=== PATIENT | male | born 1970 | race African-American/Black ===

== ENCOUNTER 2016-04-10 13:59 | Emergency (ER) | payer OTHER ==
[2016-04-10] MEDS ORDERED: NORMAL SALINE 1000 ML 1,000 ML IV ONE (14:30)
--- NOTE | 2016-04-10 14:36 | ER Document Report ---
ED General - General Chief Complaint: Seizure Stated Complaint: POSSIBLE SEIZURES Mode of Arrival: Medic Information source: Parent Cannot obtain history due to: Altered mental status Notes: This is a 46-year-old -[place] male with a history of seizure disorder secondary to traumatic brain injury in 1994. He is brought to the ER today for evaluation of seizures. He has been noted to have 8-10 seizures since this morning. The episodes are described as his extremities "locking up" and possible "posturing" from EMS. It is unclear if he had any tonic clonic movements. It does not appear that he has had loss of bowel or bladder. He was given IM Versed and 5 mg of Valium IV per EMS in route and has not had seizures since this medication. His mother accompanies him and provides the history as patient is postictal and drowsy from the Valium and Versed. Patient' s mother states that he is always very compliant with his medications. His antiepileptics include Keppra and Lamictal. He is followed by a neurologist in [place], who he last saw 2 months ago. His last seizure according to his mother was back in November 2015, which was about 4 months ago. She states that patient has had no recent fevers or illnesses. He has had no vomiting or diarrhea. He was acting normally until today. TRAVEL OUTSIDE OF THE [place] IN LAST 30 DAYS: No - Related Data Allergies/Adverse Reactions: phenytoin sodium [From Dilantin] Allergy (Verified 04/14/14 20:51) phenytoin sodium extended [From Dilantin] Allergy (Verified 04/14/14 20:51) Past Medical History - General Information source: Parent Cannot obtain history due to: Altered mental status - Social History Smoking Status: Unknown if Ever Smoked Family History: Reviewed & Not Pertinent - Past Medical History Cardiac Medical History: Reports: Hx Hypercholesterolemia, Hx Hypertension Neurological Medical History: Reports: Hx Migraine, Hx Seizures Endocrine Medical History: Denies: Hx Diabetes Mellitus Type 1, Hx Diabetes Mellitus Type 2 Musculoskeltal Medical History: Reports Hx Arthritis Psychiatric Medical History: Reports: Hx Anxiety, Hx Depression Traumatic Medical History: Reports: Hx Traumatic Brain Injury Past Surgical History: Reports: Hx Neurologic Surgery - Open skull fracture, craniotomy repair, Hx Orthopedic Surgery - Hand surgery - Immunizations Hx Diphtheria, Pertussis, Tetanus Vaccination: Yes Review of Systems - Review of Systems -: Yes ROS unobtainable due to patient's medical condition Physical Exam - Vital signs Vitals: Resp BP 25 H 125/77 04/10/16 14:06 04/10/16 14:06 - Notes Notes: PHYSICAL EXAMINATION: GENERAL: well-nourished -[place] male who appears sleepy. Will respond to tactile stimulation and answers questions appropriately although tired. HEAD: Atraumatic, normocephalic. EYES: Pupils equal round and reactive to light, extraocular movements intact, sclera anicteric, conjunctiva are normal. ENT: nares patent, oropharynx clear without exudates. Moist mucous membranes. NECK: Normal range of motion, supple without lymphadenopathy LUNGS: Breath sounds clear to auscultation bilaterally and equal. No wheezes rales or rhonchi. HEART: Regular rate and rhythm without murmurs ABDOMEN: Soft, nontender, normoactive bowel sounds. No guarding, no rebound. No masses appreciated. EXTREMITIES: Normal range of motion, no pitting or edema. No cyanosis. NEUROLOGICAL: Cranial nerves grossly intact. No gross focal motor or sensory deficits appreciated PSYCH: Normal mood, normal affect. SKIN: Warm, Dry, normal turgor, no rashes or lesions noted. Course - Re-evaluation Re-evalutation: 04/10/16 16:38 Patient reevaluated. He is alert and conversant and back to his baseline mental status. Discussed results with him and his mother who is his caregiver. When a similar event occurred last November, he was instructed to increase his dose of Keppra. However he was running out because he did not have a new prescription for the new dose, so he has resumed the previous dose of 500 mg twice a day. We discussed increasing this to 1000 mg every morning and 500 mg by mouth daily at bedtime. He is instructed to call his neurologist tomorrow to change the prescription. Strict return precautions were discussed he and his mother were comfortable with plan. 04/11/16 00:08 - Vital Signs Vital signs: Temp Pulse Resp BP Pulse Ox 97.8 F 19 124/80 93 04/10/16 17:03 04/10/16 17:01 04/10/16 17:01 04/10/16 17:01 - Laboratory Result Diagrams: 04/10/16 14:19 04/10/16 14:19 Laboratory results interpreted by me: 04/10/16 04/10/16 04/10/16 14:19 14:19 15:03 RDW 15.4 H Glucose 120 H POC Glucose 117 H AST 16 L Urine Urobilinogen 04/10/16 16:45 RDW Glucose POC Glucose AST Urine Urobilinogen 2.0 H Discharge - Discharge Clinical Impression: Seizure Condition: Stable Disposition: HOME, SELF-CARE Additional Instructions: Seizure, Known Epileptic You have had a seizure. Seizures may "break through" in an epileptic due to stress of infection or injury, a change in blood chemistry, or drug and alcohol use. Another common cause is failure to take medication as prescribed. Your doctor has evaluated your situation for the likely cause of this seizure. It is important that you follow his advice concerning any medication changes and follow-up care. Further testing of anti-seizure medication levels in your blood may be necessary. If you have a light truck driver's license, it's important that you DO NOT DRIVE until given permission by your physician. This seizure must be reported to the light truck driver 's license bureau. Call the doctor or return if seizures recur, or if new or unusual symptoms arise -- such as severe headache, confusion, excessive sleepiness, local weakness or numbness, neck stiffness, or fever. Increase your Keppra dose to 1000 mg by mouth every morning and 500 mg by mouth at nighttime. Call your neurologist tomorrow to discuss this new dose and need for prescription change. Also discussed follow-up appointment. Return to the ER for any worsening symptoms or concerns. Prescriptions: Levetiracetam [Keppra 500 mg Tablet] 500 mg PO QAM #20 tablet
[2016-04-10 14:40] LABS: ABSOLUTE BASOPHILS # (AUTO) 0.1 10^3/uL (0.0-0.2); ABSOLUTE EOSINOPHILS # (AUTO) 0.3 10^3/uL (0.0-0.6); ABSOLUTE LYMPHOCYTES (AUTO) 2.5 10^3/uL (0.5-4.7); ABSOLUTE MONOCYTES (AUTO) 0.8 10^3/uL (0.1-1.4); ABSOLUTE NEUT (AUTO) 4.1 10^3/uL (1.7-8.2); BASOPHILS % (AUTO) 0.8 % (0-2); EOSINOPHILS % (AUTO) 3.5 % (0-6); HEMATOCRIT 47.8 % (37.9-51.0); HEMOGLOBIN 15.9 g/dL (13.5-17.0); HGB HCT DIFFERENCE -0.1; LYMPHOCYTES % (AUTO) 32.8 % (13-45); MEAN CORPUSCULAR HEMOGLOBIN 30.2 pg (27.0-33.4); MEAN CORPUSCULAR HGB CONC 33.4 g/dL (32.0-36.0); MEAN CORPUSCULAR VOLUME 90 fl (80-97); MONOCYTES % (AUTO) 9.9 % (3-13); RED BLOOD COUNT 5.28 10^6/uL (4.35-5.55); RED CELL DISTRIBUTION WIDTH 15.4 % (11.5-14.0); WHITE BLOOD COUNT 7.8 10^3/uL (4.0-10.5)
[2016-04-10 14:49] LABS: ALANINE AMINOTRANSFERASE 35 U/L (21-72); ALBUMIN 4.5 g/dL (3.5-5.0); ALKALINE PHOSPHATASE 98 U/L (38-126); ANION GAP 10 (5-19); ASPARTATE AMINO TRANSFERASE 16 U/L (17-59); BILIRUBIN,TOTAL 0.5 mg/dL (0.2-1.3); BLOOD UREA NITROGEN 13 mg/dL (7-20); CARBON DIOXIDE 28 mmol/L (22-30); CHLORIDE 106 mmol/L (98-107); GLUCOSE 120 mg/dL (75-110); POTASSIUM 4.6 mmol/L (3.6-5.0); SODIUM 143.8 mmol/L (137-145)
[2016-04-10 14:50] LABS: ALCOHOL < 10 mg/dL (NONE DETECTED)
[2016-04-10 17:03] VITALS: BP 124/80
[2016-04-10 17:06] LABS: APPEARANCE,URINE CLEAR; BILIRUBIN,URINE NEGATIVE (NEGATIVE); GLUCOSE, URINE NEGATIVE (NEGATIVE); KETONES,URINE NEGATIVE (NEGATIVE); LEUKOCYTE ESTERASE,URINE NEGATIVE (NEGATIVE); NITRITE,URINE NEGATIVE (NEGATIVE); PROTEIN,URINE NEGATIVE (NEGATIVE); URINE SPECIFIC GRAVITY 1.025
[2016-04-10 17:26] LABS: URINE BARBITURATES SCREEN NEGATIVE; URINE METHADONE SCREEN NEGATIVE; URINE OPIATES LOW NEGATIVE; URINE PHENCYCLIDINE SCREEN NEGATIVE
[2016-04-12 14:08] LABS: LAMOTRIGINE (LAMICTAL) 17.2 ug/mL (2.0-20.0)
[2016-04-13 14:23] LABS: LEVETIRACETAM (KEPPRA) 10.3 ug/mL (10.0-40.0)
== END 2016-04-10 17:18 | disposition home or self-care (01) ==
LOC: ER 13:59
DX: G40.909 Epilepsy, unspecified, not intractable, without status epilepticus (principal); S06.9X0S Unspecified intracranial injury without loss of consciousness, sequela; X58.XXXS Exposure to other specified factors, sequela; Z79.899 Other long term (current) drug therapy; I10 Essential (primary) hypertension; Z88.8 Allergy status to other drugs, medicaments and biological substances
CPT/HCPCS: 99284; 36415; 80177; 82962; 80307 ×2; 83735; 85025; 80053; 80175; 81001; 71010; 70450; J7030

== ENCOUNTER 2017-02-25 13:04 | Emergency (ER) | payer OTHER, MEDICARE, MEDICAID ==
--- NOTE | 2017-02-25 13:25 | ER Document Report ---
ED General - General Chief Complaint: Seizure Stated Complaint: POSSIBLE SEIZURE Time Seen by Provider: 02/25/17 13:14 Notes: Patient is a 47-year-old female who presents emergency department with a chief complaint of seizure. Patient has well-known history of seizures and is on Lamictal and Keppra. Mom states that he was at a basketball game watching when he had a witnessed seizure. His parents were called and EMS was called. Prior to arrival the patient had 2 witnessed seizures with EMS and he received 2.5 mg of intranasal Versed. Patient has not had a seizure since. mom states that he is compliant with his medications. States she puts them together for him to make sure that he takes them. She states that he has not skipped any doses. . Mom also stating that his abdomen has been distended over the past couple of days but she denies any nausea, vomiting, diarrhea or constipation. She states she is not aware of his bowel habits though Patient's primary care and neurology are both through the [facility]. He does go to [facility] for neurology. TRAVEL OUTSIDE OF THE [place] IN LAST 30 DAYS: No - Related Data Allergies/Adverse Reactions: phenytoin sodium [From Dilantin] Allergy (Verified 02/25/17 13:31) phenytoin sodium extended [From Dilantin] Allergy (Verified 02/25/17 13:31) Past Medical History - Social History Smoking Status: Never Smoker Family History: Reviewed & Not Pertinent - Past Medical History Cardiac Medical History: Reports: Hx Hypercholesterolemia, Hx Hypertension Neurological Medical History: Reports: Hx Migraine, Hx Seizures Endocrine Medical History: Denies: Hx Diabetes Mellitus Type 1, Hx Diabetes Mellitus Type 2 Musculoskeltal Medical History: Reports Hx Arthritis Psychiatric Medical History: Reports: Hx Anxiety, Hx Depression Traumatic Medical History: Reports: Hx Traumatic Brain Injury Past Surgical History: Reports: Hx Neurologic Surgery - Open skull fracture, craniotomy repair, Hx Orthopedic Surgery - Hand surgery - Immunizations Hx Diphtheria, Pertussis, Tetanus Vaccination: Yes Review of Systems - Review of Systems Constitutional: No symptoms reported Cardiovascular: No symptoms reported Respiratory: No symptoms reported Gastrointestinal: See HPI Musculoskeletal: No symptoms reported Neurological/Psychological: See HPI -: Yes All other systems reviewed and negative Physical Exam - Vital signs Vitals: Resp Pulse Ox 21 H 93 02/25/17 13:14 02/25/17 13:14 - Notes Notes: PHYSICAL EXAM GENERAL: Sleeping but arousable to physical stimuli when I shake his arm HEAD: Normocephalic, atraumatic. EYES: Pupils equal, round, and reactive to light. Extraocular movements intact. ENT: Oral mucosa moist, tongue midline. NECK: Full range of motion. Supple. Trachea midline. LUNGS: Clear to auscultation bilaterally, no wheezes, rales, or rhonchi. No respiratory distress. HEART: Regular rate and rhythm. No murmurs, gallops, or rubs. ABDOMEN: Soft, distended, nontender. No guarding, rebound, or rigidity.. Bowel sounds present in all 4 quadrants. EXTREMITIES: Moves all 4 extremities spontaneously. No edema, radial and dorsalis pedis pulses 2/4 bilaterally. No cyanosis. NEUROLOGICAL: Alert and oriented x4. Normal speech. PSYCH: Normal affect, normal mood. SKIN: Warm, dry, normal turgor. No rashes or lesions noted. Course - Re-evaluation Re-evalutation: 02/25/17 15:45 patient is a 47-year-old male who is hemodynamically stable, no acute distress and afebrile. patient has been drowsy from the intranasal Versed but is becoming progressively more responsive. Still not at baseline. Presentation of well-appearing patient after having a seizure. Patient has a known history of seizures. No obvious trigger for today's episode. KUB that was completed cannot be ruled out for any underlying ascites. Given that patient has a normal liver function patient without history of liver disease, hepatitis. 02/25/17 17:45 The patient has returned to baseline without intervention. No focal neurologic deficits. No infectious symptoms, vital sign abnormalities, or evidence of trauma. No indication for laboratories or imaging based on reassuring evaluation and known history of seizures. Regarding the patient's CT scan the abdomen pelvis there is no acute findings or concerns for ascites or constipation. The patient will be discharged home with recommendations for close follow-up with primary care as well as their neurologist. Return precautions have been reviewed and patient has verbalized understanding. - Vital Signs Vital signs: Temp Pulse Resp BP Pulse Ox 98.1 F 20 128/76 H 97 02/25/17 18:00 02/25/17 18:00 02/25/17 18:00 02/25/17 18:00 - Laboratory Result Diagrams: 02/25/17 13:10 02/25/17 13:10 Laboratory results interpreted by me: 02/25/17 02/25/17 13:10 13:10 RDW 15.4 H Glucose 114 H AST 16 L - Diagnostic Test Radiology reviewed: Image reviewed, Reports reviewed Discharge - Discharge Clinical Impression: Seizure Condition: Good Disposition: HOME, SELF-CARE Additional Instructions: Seizure, Known Epileptic You have had a seizure. Seizures may "break through" in an epileptic due to stress of infection or injury, a change in blood chemistry, or drug and alcohol use. Another common cause is failure to take medication as prescribed. Your doctor has evaluated your situation for the likely cause of this seizure. It is important that you follow his advice concerning any medication changes and follow-up care. Further testing of anti-seizure medication levels in your blood may be necessary. If you have a transport truck driver's license, it's important that you DO NOT DRIVE until given permission by your physician. This seizure must be reported to the transport truck driver 's license bureau. Call the doctor or return if seizures recur, or if new or unusual symptoms arise -- such as severe headache, confusion, excessive sleepiness, local weakness or numbness, neck stiffness, or fever. Referrals: [facility] [Provider Group] - Follow up in 1 week
[2017-02-25 13:28] LABS: ABSOLUTE BASOPHILS # (AUTO) 0.1 10^3/uL (0.0-0.2); ABSOLUTE EOSINOPHILS # (AUTO) 0.3 10^3/uL (0.0-0.6); ABSOLUTE LYMPHOCYTES (AUTO) 2.4 10^3/uL (0.5-4.7); ABSOLUTE MONOCYTES (AUTO) 0.7 10^3/uL (0.1-1.4); ABSOLUTE NEUT (AUTO) 3.9 10^3/uL (1.7-8.2); BASOPHILS % (AUTO) 1.1 % (0-2); EOSINOPHILS % (AUTO) 4.3 % (0-6); HEMATOCRIT 46.9 % (37.9-51.0); HEMOGLOBIN 15.9 g/dL (13.5-17.0); LYMPHOCYTES % (AUTO) 32.4 % (13-45); MEAN CORPUSCULAR HEMOGLOBIN 30.5 pg (27.0-33.4); MEAN CORPUSCULAR HGB CONC 33.8 g/dL (32.0-36.0); MEAN CORPUSCULAR VOLUME 90 fl (80-97); PLATELET COUNT 210 10^3/uL (150-450); RED BLOOD COUNT 5.21 10^6/uL (4.35-5.55); RED CELL DISTRIBUTION WIDTH 15.4 % (11.5-14.0); SEGMENTED NEUTROPHILS % (AUTO) 52.2 % (42-78); TOTAL CELLS COUNTED % (AUTO) 100 %; WHITE BLOOD COUNT 7.5 10^3/uL (4.0-10.5)
[2017-02-25 13:50] LABS: ALANINE AMINOTRANSFERASE 30 U/L (21-72); ALBUMIN 4.3 g/dL (3.5-5.0); ALCOHOL < 10 mg/dL (NONE DETECTED); ALKALINE PHOSPHATASE 89 U/L (38-126); ANION GAP 8 (5-19); ASPARTATE AMINO TRANSFERASE 16 U/L (17-59); BILIRUBIN,DIRECT 0.2 mg/dL (0.0-0.4); BILIRUBIN,TOTAL 0.4 mg/dL (0.2-1.3); BLOOD UREA NITROGEN 9 mg/dL (7-20); CALCIUM 9.8 mg/dL (8.4-10.2); CARBON DIOXIDE 29 mmol/L (22-30); CHLORIDE 106 mmol/L (98-107); GLUCOSE 114 mg/dL (75-110); MAGNESIUM 1.9 mg/dL (1.6-2.3); POTASSIUM 4.3 mmol/L (3.6-5.0); SODIUM 143.1 mmol/L (137-145); TOTAL PROTEIN 6.7 g/dL (6.3-8.2)
[2017-02-25 14:59] LABS: APPEARANCE,URINE CLEAR; BILIRUBIN,URINE NEGATIVE (NEGATIVE); COLOR,URINE YELLOW; GLUCOSE, URINE NEGATIVE (NEGATIVE); KETONES,URINE NEGATIVE (NEGATIVE); LEUKOCYTE ESTERASE,URINE NEGATIVE (NEGATIVE); NITRITE,URINE NEGATIVE (NEGATIVE); PROTEIN,URINE NEGATIVE (NEGATIVE); URINE SPECIFIC GRAVITY 1.005; UROBILINOGEN,URINE NEGATIVE mg/dL (<2.0)
[2017-02-25 15:11] LABS: URINE AMPHETAMINES SCREEN NEGATIVE; URINE BARBITURATES SCREEN NEGATIVE; URINE BENZODIAZEPINES SCREEN UNCONFIRMED POSITIVE; URINE COCAINE SCREEN NEGATIVE; URINE MARIJUANA (THC) SCREEN NEGATIVE; URINE METHADONE SCREEN NEGATIVE; URINE PHENCYCLIDINE SCREEN NEGATIVE
--- NOTE | 2017-02-25 15:30 | RADIOLOGY REPORT (SQ) ---
EXAM DESCRIPTION: CT HEAD WITHOUT COMPLETED DATE/TIME: 02/25/2017 2:50 pm REASON FOR STUDY: seizure COMPARISON: 04/10/2016. TECHNIQUE: Axial images acquired through the brain without intravenous contrast. Images reviewed wi th bone, brain and subdural windows. Images stored on PACS. All CT scanners at this facility use dose modulation, iterative reconstruction, and/or weight based d osing when appropriate to reduce radiation dose to as low as reasonably achievable (ALARA). [facility]: Dose Right [facility]: CareDose [facility]: Dose Right [facility]: Teradose 4D [facility]: [employer] RADIATION DOSE: CT Rad equipment meets quality standard of care and radiation dose reduction techniq ues were employed. CTDIvol: 64.6 mGy. DLP: 1163 mGy-cm. mGy. LIMITATIONS: None. FINDINGS: VENTRICLES: Normal size and contour. CEREBRUM: Stable encephalomalacia in the right frontal lobe. No masses. No hemorrhage. No midline shift. No evidence for acute infarction. Normal barrera/white matter differentiation. No areas of low d ensity in the white matter. CEREBELLUM: No masses. No hemorrhage. No alteration of density. No evidence for acute infarction. EXTRAAXIAL SPACES: No fluid collections. No masses. ORBITS AND GLOBE: Surgical changes with hardware in the right orbit and maxillary sinus. No intra- o r extraconal masses. Normal contour of globe without masses. CALVARIUM: No acute fracture. Surgical changes and hardware in the right frontal bone PARANASAL SINUSES: No fluid or mucosal thickening. SOFT TISSUES: No mass or hematoma. OTHER: No other significant finding. IMPRESSION: SURGICAL CHANGES INVOLVING THE RIGHT FRONTAL LOBE WITH CHRONIC ENCEPHALOMALACIA WELL IN THE RIGHT ORBIT AND RIGHT MAXILLARY SINUS. NO ACUTE FINDINGS. EVIDENCE OF ACUTE STROKE: NO. COMMENT: Quality ID # [id number]: Final reports with documentation of one or more dose reduction techniques (e.g., Automated exposure control, adjustment of the mA and/or kV according to patient size, use of iterative reconstruction technique) TECHNICAL DOCUMENTATION: JOB ID: [id number] [employer] [facility]- All Rights Reserved
[2017-02-25] MEDS ORDERED: NORMAL SALINE 1000 ML 1,000 ML IV ONE (15:44)
--- NOTE | 2017-02-25 16:53 | RADIOLOGY REPORT (SQ) ---
EXAM DESCRIPTION: KUB/ABDOMEN (SINGLE VIEW) COMPLETED DATE/TIME: 02/25/2017 4:31 pm REASON FOR STUDY: abdominal distension COMPARISON: None. NUMBER OF VIEWS: One view. TECHNIQUE: Supine radiographic image of the abdomen acquired. LIMITATIONS: None. FINDINGS: BOWEL GAS PATTERN: Normal bowel gas pattern. Scattered gas is noted within the right bragg sverse descending and rectosigmoid colon. Minimal small bowel gas. CALCIFICATIONS: Atherosclerotic change of the abdominal aorta and iliac vessels. SOFT TISSUES: The inferior liver edge is visualized. Psoas margins are not well seen. HARDWARE: None in the abdomen. BONES: No acute fracture. No worrisome bone lesions. OTHER: Overall increased density of abdomen suggests the possibility of ascites. IMPRESSION: Nonspecific bowel-gas pattern. Possible ascites. COMMENT: The findings were discussed with SIMONE Suarez. TECHNICAL DOCUMENTATION: JOB ID: [id number] [employer]- All Rights Reserved
[2017-02-25 17:15] LABS: VENOUS BLOOD BASE EXCESS 0.9 mmol/L; VENOUS BLOOD HCO3 27.6 mmol/L (20-32); VENOUS BLOOD PCO2 51.7 mmHg (35-63); VENOUS BLOOD PH 7.35 (7.30-7.42)
--- NOTE | 2017-02-25 17:37 | RADIOLOGY REPORT (SQ) ---
EXAM DESCRIPTION: CT ABD/PELVIS WITH IV ONLY COMPLETED DATE/TIME: 02/25/2017 5:25 pm REASON FOR STUDY: abdominal distension COMPARISON: None. TECHNIQUE: CT scan of the abdomen and pelvis performed using helical scanning technique with dynamic intravenous contrast injection. No oral contrast. Images reviewed with lung, soft tissue, and bone windows. Reconstructed coronal and sagittal MPR images reviewed. Delayed images for evaluation of the urinary system also acquired. All images stored on PACS. All CT scanners at this facility use dose modulation, iterative reconstruction, and/or weight based d osing when appropriate to reduce radiation dose to as low as reasonably achievable (ALARA). [facility]: Dose Right [facility]: CareDose [facility]: Dose Right [facility]: Teradose 4D [facility]: [employer] CONTRAST TYPE AND DOSE: contrast/concentration: Isovue 370.00 mg/ml; Total Contrast Delivered: 100.0 ml; Total Saline Delivered: 72.0 ml RENAL FUNCTION: BUN 9 creatinine 0.98. RADIATION DOSE: CT Rad equipment meets quality standard of care and radiation dose reduction techniq ues were employed. CTDIvol: 19.1 - 20.4 mGy. DLP: 2320 mGy-cm.. LIMITATIONS: None. FINDINGS: LOWER CHEST: No significant findings. No nodules or infiltrates. LIVER: Normal size. No masses. No dilated ducts. SPLEEN: Normal size. No focal lesions. PANCREAS: No masses. No significant calcifications. No adjacent inflammation or peripancreatic fluid collections. Pancreatic duct not dilated. GALLBLADDER: No identified stones by CT criteria. No inflammatory changes to suggest cholecystitis. ADRENAL GLANDS: No significant masses or asymmetry. RIGHT KIDNEY AND URETER: No solid masses. No significant calcifications. No hydronephrosis or hyd roureter. LEFT KIDNEY AND URETER: No solid masses. No significant calcifications. No hydronephrosis or hydr oureter. AORTA AND VESSELS: No aneurysm. No dissection. Renal arteries, SMA, celiac without stenosis. RETROPERITONEUM: No retroperitoneal adenopathy, hemorrhage or masses. BOWEL AND PERITONEAL CAVITY: No masses or inflammatory changes. No free fluid or peritoneal masses. APPENDIX: Normal. PELVIS: No mass. No free fluid. Normal bladder. ABDOMINAL WALL: No masses. No hernias. BONES: No significant or acute findings. OTHER: No other significant finding. IMPRESSION: NO SIGNIFICANT OR ACUTE FINDING IN THE ABDOMEN OR PELVIS ON CT SCAN WITH IV CONTRAST. TECHNICAL DOCUMENTATION: JOB ID: [id number] Quality ID # [id number]: Final reports with documentation of one or more dose reduction techniques (e.g., Au tomated exposure control, adjustment of the mA and/or kV according to patient size, use of iterative reconstruction technique) 2010 [employer]- All Rights Reserved
[2017-02-25 18:02] VITALS: BP 128/76
== END 2017-02-25 18:21 | disposition home or self-care (01) ==
LOC: ER 13:04
DX: R56.9 Unspecified convulsions (principal); R14.0 Abdominal distension (gaseous); I10 Essential (primary) hypertension; Z79.899 Other long term (current) drug therapy; Z88.8 Allergy status to other drugs, medicaments and biological substances
CPT/HCPCS: 99285; 96360; 36415; 80177; 80307 ×2; 83735; 85025; 80053; 80175; 81001; 82803; 74018; 70450; 74177; J7030

== ENCOUNTER 2017-03-11 17:50 | Emergency (ER) | payer OTHER, MEDICARE, MEDICAID ==
[2017-03-11 18:32] LABS: ABSOLUTE BASOPHILS # (AUTO) 0.1 10^3/uL (0.0-0.2); ABSOLUTE EOSINOPHILS # (AUTO) 0.3 10^3/uL (0.0-0.6); ABSOLUTE LYMPHOCYTES (AUTO) 3.1 10^3/uL (0.5-4.7); ABSOLUTE NEUT (AUTO) 4.5 10^3/uL (1.7-8.2); BASOPHILS % (AUTO) 0.8 % (0-2); HEMATOCRIT 46.2 % (37.9-51.0); HEMOGLOBIN 15.3 g/dL (13.5-17.0); LYMPHOCYTES % (AUTO) 34.7 % (13-45); MEAN CORPUSCULAR HGB CONC 33.2 g/dL (32.0-36.0); MEAN CORPUSCULAR VOLUME 91 fl (80-97); MONOCYTES % (AUTO) 10.9 % (3-13); PLATELET COUNT 238 10^3/uL (150-450); RED BLOOD COUNT 5.11 10^6/uL (4.35-5.55); RED CELL DISTRIBUTION WIDTH 15.3 % (11.5-14.0); SEGMENTED NEUTROPHILS % (AUTO) 50.6 % (42-78); TOTAL CELLS COUNTED % (AUTO) 100 %; WHITE BLOOD COUNT 8.9 10^3/uL (4.0-10.5)
--- NOTE | 2017-03-11 18:42 | ER Document Report ---
ED General - General Chief Complaint: Probable Seizure Stated Complaint: POSSIBLE SEIZURE Time Seen by Provider: 03/11/17 18:16 Notes: Patient is a 47-year-old male with a past medical history of epilepsy, sleep apnea and hypertension who presents after a witnessed seizure prior to arrival. The patient has a known history of seizures, last seizure was approximately 1 week ago at which time he was evaluated in the emergency department. No recent medication changes. He arrives somnolent but does open his eyes to noxious stimuli and moves all extremities spontaneously. His mother at the bedside reports that this is very typical for his postictal phase. TRAVEL OUTSIDE OF THE [place] IN LAST 30 DAYS: No - Related Data Allergies/Adverse Reactions: phenytoin sodium [From Dilantin] Allergy (Verified 02/25/17 13:31) phenytoin sodium extended [From Dilantin] Allergy (Verified 02/25/17 13:31) Past Medical History - General Information source: Relative - Social History Smoking Status: Never Smoker Frequency of alcohol use: None Drug Abuse: None Lives with: Family Family History: Reviewed & Not Pertinent - Past Medical History Cardiac Medical History: Reports: Hx Hypercholesterolemia, Hx Hypertension Neurological Medical History: Reports: Hx Migraine, Hx Seizures Endocrine Medical History: Denies: Hx Diabetes Mellitus Type 1, Hx Diabetes Mellitus Type 2 Renal/ Medical History: Denies: Hx Peritoneal Dialysis Musculoskeltal Medical History: Reports Hx Arthritis Psychiatric Medical History: Reports: Hx Anxiety, Hx Depression Traumatic Medical History: Reports: Hx Traumatic Brain Injury Past Surgical History: Reports: Hx Neurologic Surgery - Open skull fracture, craniotomy repair, Hx Orthopedic Surgery - Hand surgery - Immunizations Hx Diphtheria, Pertussis, Tetanus Vaccination: Yes Review of Systems - Review of Systems Notes: Review completed after patient awoke from his postictal phase Constitutional: Negative for fever. HENT: Negative for sore throat. Eyes: Negative for visual changes. Cardiovascular: Negative for chest pain. Respiratory: Negative for shortness of breath. Gastrointestinal: Negative for abdominal pain, vomiting or diarrhea. Genitourinary: Negative for dysuria. Musculoskeletal: Negative for back pain. Skin: Negative for rash. Neurological: Negative for headaches, weakness or numbness. 10 point ROS negative except as marked above and in HPI. Physical Exam - Vital signs Vitals: Pulse Ox 91 L 03/11/17 17:51 Interpretation: Hypoxic Notes: PHYSICAL EXAMINATION: Exam repeated once patient was awake, alert and oriented GENERAL: Initially obtunded, responsive only to noxious stimuli but on repeat exam awake, alert and smiling HEAD: Atraumatic, normocephalic. EYES: Pupils equal round and reactive to light, extraocular movements intact, sclera anicteric, conjunctiva are normal. ENT: nares patent, oropharynx clear without exudates. Moist mucous membranes. NECK: Normal range of motion, supple without lymphadenopathy LUNGS: Breath sounds clear to auscultation bilaterally and equal. No wheezes rales or rhonchi. HEART: Regular rate and rhythm without murmurs ABDOMEN: Soft, nontender, normoactive bowel sounds. No guarding, no rebound. No masses appreciated. EXTREMITIES: Normal range of motion, no pitting or edema. No cyanosis. NEUROLOGICAL: Face symmetric. Tongue protrudes midline. Extraocular motions intact. Pupils are 2 mm and equally reactive. Normal speech, normal gait. 5 out of 5 strength in both the distal and proximal upper and lower extremities bilaterally. Sensation is grossly intact throughout. Finger to nose testing normal. Pronator drift normal. PSYCH: Normal mood, normal affect. SKIN: Warm, Dry, normal turgor, no rashes or lesions noted. Course - Re-evaluation Re-evalutation: 03/11/17 18:41 Presentation of well-appearing patient after having a seizure. Patient has a known history of seizures. No obvious trigger for today's episode. And waiting for patient to return to baseline. No focal neurologic deficits. No infectious symptoms or evidence of trauma. Patient was mildly hypoxic at time of arrival which on review his prior visit was very similar to this presentation at that time. Will continue on supplemental oxygen. Labs sent from triage are unremarkable. 03/11/17 20:27 Patient is return to baseline but has mild hypoxemia ranging from 88-92% on room air which is lower than it was when he first arrived to the hospital. A chest x-ray will therefore be obtained due to concern of possible aspiration setting of his seizure. He has otherwise tolerated oral intake, and blade without difficulty and is at his baseline. Will continue to monitor closely as similar to the previous presentation patient did take several hours to return to a normal oxygen saturation on room air during his prior visit. 03/11/17 22:49 It appears the patient has not been taking appropriate deep breaths. When I went to the room patient's oxygen saturation was 88%. He was closed lipped, taking very shallow breaths through his nose. I asked him to take several deep breaths by mouth and his oxygen saturations immediately improved to 96% on room air. Given that his chest x-ray does not demonstrate any evidence of a pneumonitis, and he has no other likely pathology based on exam and history suggest an etiology for his hypoxemia, as well as the rapid correction when he takes appropriate breaths, I do not believe any further workup or observation is indicated. The patient and his mother would like to go home, stating that they do not want to wait here any longer. At this time will discharge with return precautions and follow-up recommendations. Verbal discharge instructions given a the bedside and opportunity for questions given. Medication warnings reviewed. Patient is in agreement with this plan and has verbalized understanding of return precautions and the need for primary care follow-up in the next 24-72 hours. - Vital Signs Vital signs: Temp Pulse Resp BP Pulse Ox 24 H 137/73 H 96 03/11/17 19:01 03/11/17 19:01 03/11/17 19:01 - Laboratory Result Diagrams: 03/11/17 17:53 03/11/17 17:53 Laboratory results interpreted by me: 03/11/17 03/11/17 17:53 17:53 RDW 15.3 H Chloride 108 H AST 14 L ALT 19 L Total Protein 6.2 L - Diagnostic Test Radiology reviewed: Image reviewed, Reports reviewed Radiology results interpreted by me: 03/11/17 21:02 Chest x-ray: No acute infiltrate or evidence of pneumonitis Discharge - Discharge Clinical Impression: Seizures Condition: Good Disposition: HOME, SELF-CARE Additional Instructions: Today you had a seizure. It is very important that you do not engage in any activities that could result in severe injury should you have a seizure. Specifically, do not drive a vehicle, go into a body of water, take a bath, climb ladders, or operate any heavy machinery until you have been cleared by your neurologist. Please return to the ED immediately if you have multiple seizures close together, develop a severe headache, weakness, numbness, difficulty speaking, have a seizure in which you do not return to normal within 1 hour of the seizure, or have any other symptoms that are concerning to you. Referrals: BRUMFIELD,JALEN D, DO [Primary Care Provider] - Follow up as needed
[2017-03-11 18:50] LABS: ALANINE AMINOTRANSFERASE 19 U/L (21-72); ALBUMIN 3.8 g/dL (3.5-5.0); ALKALINE PHOSPHATASE 79 U/L (38-126); ANION GAP 7 (5-19); ASPARTATE AMINO TRANSFERASE 14 U/L (17-59); BILIRUBIN,DIRECT 0.3 mg/dL (0.0-0.4); BILIRUBIN,TOTAL 0.4 mg/dL (0.2-1.3); BLOOD UREA NITROGEN 16 mg/dL (7-20); CALCIUM 9.8 mg/dL (8.4-10.2); CARBON DIOXIDE 27 mmol/L (22-30); CHLORIDE 108 mmol/L (98-107); GLUCOSE 88 mg/dL (75-110); MAGNESIUM 1.9 mg/dL (1.6-2.3); POTASSIUM 4.5 mmol/L (3.6-5.0); SODIUM 142.1 mmol/L (137-145); TOTAL PROTEIN 6.2 g/dL (6.3-8.2)
[2017-03-11 18:52] LABS: ALCOHOL < 10 mg/dL (NONE DETECTED)
--- NOTE | 2017-03-11 21:03 | RADIOLOGY REPORT (SQ) ---
EXAM DESCRIPTION: CHEST SINGLE VIEW COMPLETED DATE/TIME: 03/11/2017 8:43 pm REASON FOR STUDY: sob, cough COMPARISON: 04/10/2016 EXAM PARAMETERS: NUMBER OF VIEWS: One view. TECHNIQUE: Single frontal radiographic view of the chest acquired. RADIATION DOSE: NA LIMITATIONS: None. FINDINGS: LUNGS AND PLEURA: No opacities, masses or pneumothorax. No pleural effusion. MEDIASTINUM AND HILAR STRUCTURES: No masses. Contour normal. HEART AND VASCULAR STRUCTURES: Heart normal in size. Normal vasculature. BONES: No acute findings. HARDWARE: None in the chest. OTHER: No other significant finding. IMPRESSION: NO ACUTE RADIOGRAPHIC FINDING IN THE CHEST. TECHNICAL DOCUMENTATION: JOB ID: [id number] [employer]- All Rights Reserved
[2017-03-11] MEDS ORDERED: IPRATROPIUM/ALBUTEROL 0.5-2.5 MG/3 ML AMPUL NEB ONE (21:34)
[2017-03-11 23:18] VITALS: BP 126/71
== END 2017-03-11 23:20 | disposition home or self-care (01) ==
LOC: ER 17:50
DX: G40.909 Epilepsy, unspecified, not intractable, without status epilepticus (principal); R09.02 Hypoxemia; I10 Essential (primary) hypertension; Z88.8 Allergy status to other drugs, medicaments and biological substances
CPT/HCPCS: 94640; 99284; 36415; 80307; 83735; 85025; 80053; 71045; J7620

== ENCOUNTER 2017-04-02 17:05 | Emergency (ER) | payer OTHER, MEDICARE, MEDICAID ==
[2017-04-02] MEDS ORDERED: LORAZEPAM INJ 2 MG/1 ML VIAL IV ONE (17:14)
[2017-04-02] MEDS ORDERED: NORMAL SALINE 1000 ML 1,000 ML IV ONE (17:14)
[2017-04-02] MEDS ORDERED: LORAZEPAM INJ 2 MG/1 ML VIAL ONE (17:15)
--- NOTE | 2017-04-02 17:26 | ER Document Report ---
ED Seizure - General Chief Complaint: Seizure Stated Complaint: POSSIBLE SEIZURE Time Seen by Provider: 04/02/17 17:13 Mode of Arrival: Stretcher Information source: Relative Cannot obtain history due to: Altered mental status TRAVEL OUTSIDE OF THE [place] IN LAST 30 DAYS: No - HPI Patient complains to provider of: History of seizures Number of episodes: 1 Time of onset: 1630 Continued on arrival to ED: No Can details of seizure be obtained/verified: No Episode witnessed (by whom): Yes - WITNESSES NOT AVAILABLE IN E.D. Current seizure medications: Keppra Preceding symptoms/context: Other - TREMULOUS. denies: Missed dose of meds History of: TBI Post-ictal symptoms: Confusion Notes: Patient's mother, with whom he lives, says he has a history of seizure disorder but has been compliant with all of his antiseizure medications. She states someone who was present told her that patient was at a ball game and began exhibiting abnormal behavior and tremors. At some point he is thought to have had a seizure in route to the emergency department, but this cannot be verified. - Related Data Allergies/Adverse Reactions: phenytoin sodium [From Dilantin] Allergy (Verified 02/25/17 13:31) phenytoin sodium extended [From Dilantin] Allergy (Verified 02/25/17 13:31) Past Medical History - General Information source: Parent - Social History Smoking Status: Current Every Day Smoker Cigarette use (# per day): Yes - 1 pk/d Chew tobacco use (# tins/day): No Frequency of alcohol use: None Drug Abuse: None Lives with: Parents Family History: Reviewed & Not Pertinent Patient has suicidal ideation: No Patient has homicidal ideation: No - Past Medical History Cardiac Medical History: Reports: Hx Hypercholesterolemia, Hx Hypertension Neurological Medical History: Reports: Hx Migraine, Hx Seizures Endocrine Medical History: Denies: Hx Diabetes Mellitus Type 1, Hx Diabetes Mellitus Type 2 Renal/ Medical History: Denies: Hx Peritoneal Dialysis Musculoskeltal Medical History: Reports Hx Arthritis Psychiatric Medical History: Reports: Hx Anxiety, Hx Depression Traumatic Medical History: Reports: Hx Traumatic Brain Injury Past Surgical History: Reports: Hx Neurologic Surgery - Open skull fracture, craniotomy repair, Hx Orthopedic Surgery - Hand surgery - Immunizations Hx Diphtheria, Pertussis, Tetanus Vaccination: Yes Review of Systems - Review of Systems -: Yes ROS unobtainable due to patient's medical condition Physical Exam - Vital signs Vitals: Temp Resp BP Pulse Ox 98.7 F 24 H 133/78 H 91 L 04/02/17 17:35 04/02/17 17:35 04/02/17 17:35 04/02/17 17:35 Interpretation: Hypoxic, Tachypneic. No: Febrile - General General appearance: Lethargic In distress: None - HEENT Head: Other - HEALED SCAR ON R. FRONTO-TEMPORAL SCALP Eyes: Normal Conjunctiva: Other - MUDDY Extraocular movements intact: Yes Ears: Normal Nasal: Normal Mouth/Lips: Normal Mucous membranes: Normal Pharynx: Normal Neck: Normal - Respiratory Respiratory status: No respiratory distress Breath sounds: Normal - Cardiovascular Rhythm: Regular Heart sounds: Normal auscultation Murmur: No - Abdominal Inspection: Normal Bowel sounds: Hypoactive Tenderness: Nontender - Extremities General upper extremity: Normal inspection General lower extremity: Normal inspection - Neurological Neuro grossly intact: No - UNCOOPERATIVE W/ FORMAL TESTING Cognition: Confused - LATER BECAME MORE LUCID - Skin Skin Temperature: Warm Skin Moisture: Dry Skin Color: Normal Skin Turgor: Elastic Course - Vital Signs Vital signs: Temp Pulse Resp BP Pulse Ox 98.7 F 24 H 127/65 H 94 04/02/17 17:35 04/02/17 18:01 04/02/17 18:01 04/02/17 18:01 - Laboratory Result Diagrams: 04/02/17 17:33 04/02/17 17:33 Laboratory results interpreted by me: 04/02/17 04/02/17 17:33 17:33 RDW 15.1 H Glucose 111 H Salicylates < 1.0 L Acetaminophen < 10 L Discharge - Discharge Clinical Impression: History of seizure disorder, Tremor Condition: Stable Disposition: HOME, SELF-CARE Instructions: Seizure, Known Epileptic ([facility]) Additional Instructions: INCREASE YOUR KEPPRA TO 500 mg THREE TIMES A DAY. CONTINUE OTHER MEDS USUAL. FOLLOW UP WITH YOUR PRIMARY CARE PROVIDER, CALL TOMORROW (MONDAY) FOR APPT.
[2017-04-02 17:47] LABS: ABSOLUTE BASOPHILS # (AUTO) 0.1 10^3/uL (0.0-0.2); ABSOLUTE EOSINOPHILS # (AUTO) 0.3 10^3/uL (0.0-0.6); ABSOLUTE LYMPHOCYTES (AUTO) 3.2 10^3/uL (0.5-4.7); ABSOLUTE MONOCYTES (AUTO) 0.8 10^3/uL (0.1-1.4); ABSOLUTE NEUT (AUTO) 3.6 10^3/uL (1.7-8.2); BASOPHILS % (AUTO) 1.2 % (0-2); HEMATOCRIT 47.1 % (37.9-51.0); HEMOGLOBIN 15.7 g/dL (13.5-17.0); LYMPHOCYTES % (AUTO) 39.6 % (13-45); MEAN CORPUSCULAR HEMOGLOBIN 30.2 pg (27.0-33.4); MEAN CORPUSCULAR HGB CONC 33.4 g/dL (32.0-36.0); MEAN CORPUSCULAR VOLUME 90 fl (80-97); MONOCYTES % (AUTO) 9.8 % (3-13); PLATELET COUNT 216 10^3/uL (150-450); RED BLOOD COUNT 5.21 10^6/uL (4.35-5.55); RED CELL DISTRIBUTION WIDTH 15.1 % (11.5-14.0); SEGMENTED NEUTROPHILS % (AUTO) 45.4 % (42-78); TOTAL CELLS COUNTED % (AUTO) 100 %
[2017-04-02 18:08] LABS: ALANINE AMINOTRANSFERASE 23 U/L (21-72); ALBUMIN 3.9 g/dL (3.5-5.0); ALKALINE PHOSPHATASE 88 U/L (38-126); ANION GAP 9 (5-19); ASPARTATE AMINO TRANSFERASE 18 U/L (17-59); BILIRUBIN,DIRECT 0.3 mg/dL (0.0-0.4); BILIRUBIN,TOTAL 0.3 mg/dL (0.2-1.3); BLOOD UREA NITROGEN 14 mg/dL (7-20); CALCIUM 9.9 mg/dL (8.4-10.2); CARBON DIOXIDE 27 mmol/L (22-30); CHLORIDE 106 mmol/L (98-107); GLUCOSE 111 mg/dL (75-110); MAGNESIUM 1.9 mg/dL (1.6-2.3); POTASSIUM 4.5 mmol/L (3.6-5.0); SODIUM 141.7 mmol/L (137-145); TOTAL PROTEIN 6.5 g/dL (6.3-8.2)
[2017-04-02 18:10] LABS: ACETAMINOPHEN < 10 ug/mL (10-30); ALCOHOL < 10 mg/dL (NONE DETECTED); SALICYLATE < 1.0 mg/dL (2.0-20.0)
[2017-04-02] MEDS ORDERED: LEVETIRACETAM 500 MG/NACL-ISO 500 MG/100 ML RTUPB IV ONE (20:01)
[2017-04-02 20:17] LABS: APPEARANCE,URINE CLEAR; BILIRUBIN,URINE NEGATIVE (NEGATIVE); COLOR,URINE YELLOW; GLUCOSE, URINE NEGATIVE (NEGATIVE); KETONES,URINE NEGATIVE (NEGATIVE); LEUKOCYTE ESTERASE,URINE NEGATIVE (NEGATIVE); NITRITE,URINE NEGATIVE (NEGATIVE); PROTEIN,URINE NEGATIVE (NEGATIVE); URINE SPECIFIC GRAVITY 1.019
[2017-04-02 20:33] LABS: URINE AMPHETAMINES SCREEN NEGATIVE; URINE BARBITURATES SCREEN NEGATIVE; URINE BENZODIAZEPINES SCREEN NEGATIVE; URINE COCAINE SCREEN NEGATIVE; URINE MARIJUANA (THC) SCREEN NEGATIVE; URINE METHADONE SCREEN NEGATIVE; URINE PHENCYCLIDINE SCREEN NEGATIVE
[2017-04-02 20:40] VITALS: BP 139/83
== END 2017-04-02 20:56 | disposition home or self-care (01) ==
LOC: ER 17:05
DX: G40.909 Epilepsy, unspecified, not intractable, without status epilepticus (principal); Z79.899 Other long term (current) drug therapy; R09.02 Hypoxemia; R06.82 Tachypnea, not elsewhere classified; I10 Essential (primary) hypertension; F17.210 Nicotine dependence, cigarettes, uncomplicated; Z88.8 Allergy status to other drugs, medicaments and biological substances
CPT/HCPCS: 99284; 96361; 96375; 96365; 36415; 87040; 80307 ×4; 83735; 85025; 80053; 81001; J2060; J7030; J1953

== ENCOUNTER 2017-11-14 16:05 | Emergency (ER) | payer OTHER, MEDICARE, MEDICAID ==
[2017-11-14] MEDS ORDERED: LEVETIRACETAM 1000 MG/NACL-ISO 1,000 MG/100 ML RTUPB IV ONE (16:11)
[2017-11-14] MEDS ORDERED: NORMAL SALINE 1000 ML 1,000 ML IV ONE (16:14)
[2017-11-14 16:28] LABS: ABSOLUTE BASOPHILS # (AUTO) 0.1 10^3/uL (0.0-0.2); ABSOLUTE EOSINOPHILS # (AUTO) 0.3 10^3/uL (0.0-0.6); ABSOLUTE MONOCYTES (AUTO) 0.7 10^3/uL (0.1-1.4); EOSINOPHILS % (AUTO) 3.8 % (0-6); HEMATOCRIT 47.3 % (37.9-51.0); HEMOGLOBIN 15.9 g/dL (13.5-17.0); LYMPHOCYTES % (AUTO) 37.2 % (13-45); MEAN CORPUSCULAR HEMOGLOBIN 30.4 pg (27.0-33.4); MEAN CORPUSCULAR HGB CONC 33.7 g/dL (32.0-36.0); MEAN CORPUSCULAR VOLUME 90 fl (80-97); MONOCYTES % (AUTO) 8.3 % (3-13); PLATELET COUNT 219 10^3/uL (150-450); RED BLOOD COUNT 5.23 10^6/uL (4.35-5.55); RED CELL DISTRIBUTION WIDTH 15.4 % (11.5-14.0); SEGMENTED NEUTROPHILS % (AUTO) 49.7 % (42-78); TOTAL CELLS COUNTED % (AUTO) 100 %; WHITE BLOOD COUNT 8.1 10^3/uL (4.0-10.5)
[2017-11-14 16:49] LABS: ANION GAP 8 (5-19); BLOOD UREA NITROGEN 12 mg/dL (7-20); CALCIUM 9.8 mg/dL (8.4-10.2); CARBON DIOXIDE 26 mmol/L (22-30); CHLORIDE 107 mmol/L (98-107); GLUCOSE 97 mg/dL (75-110); POTASSIUM 4.5 mmol/L (3.6-5.0)
[2017-11-14 16:56] LABS: ALCOHOL < 10 mg/dL (NONE DETECTED)
--- NOTE | 2017-11-14 17:30 | RADIOLOGY REPORT (SQ) ---
EXAM DESCRIPTION: CHEST SINGLE VIEW COMPLETED DATE/TIME: 11/14/2017 5:20 pm REASON FOR STUDY: sob COMPARISON: 03/11/2017 EXAM PARAMETERS: NUMBER OF VIEWS: One view. TECHNIQUE: Single frontal radiographic view of the chest acquired. RADIATION DOSE: NA LIMITATIONS: None. FINDINGS: LUNGS AND PLEURA: Ill-defined opacification in the medial right base. MEDIASTINUM AND HILAR STRUCTURES: No masses. Contour normal. HEART AND VASCULAR STRUCTURES: Borderline heart size. No pulmonary edema. BONES: No acute findings. HARDWARE: None in the chest. OTHER: No other significant finding. IMPRESSION: Cannot exclude limited right lower lobe pneumonia. Borderline heart size without pulmon jamila edema. TECHNICAL DOCUMENTATION: JOB ID: [id number] [employer]- All Rights Reserved Reading location - IP/workstation name: [email or web address]
[2017-11-14 17:49] LABS: APPEARANCE,URINE CLOUDY; BILIRUBIN,URINE NEGATIVE (NEGATIVE); COLOR,URINE YELLOW; GLUCOSE, URINE NEGATIVE (NEGATIVE); KETONES,URINE NEGATIVE (NEGATIVE); LEUKOCYTE ESTERASE,URINE TRACE (NEGATIVE); NITRITE,URINE NEGATIVE (NEGATIVE); PROTEIN,URINE 30 mg/dL (NEGATIVE); URINE SPECIFIC GRAVITY 1.023
[2017-11-14 18:01] LABS: URINE AMPHETAMINES SCREEN NEGATIVE; URINE BARBITURATES SCREEN NEGATIVE; URINE BENZODIAZEPINES SCREEN UNCONFIRMED POSITIVE; URINE COCAINE SCREEN NEGATIVE; URINE MARIJUANA (THC) SCREEN NEGATIVE; URINE METHADONE SCREEN NEGATIVE; URINE PHENCYCLIDINE SCREEN NEGATIVE
--- NOTE | 2017-11-14 19:16 | ER Document Report ---
ED General - General Chief Complaint: Seizure Stated Complaint: POSSIBLE SEIZURE Time Seen by Provider: 11/14/17 16:10 TRAVEL OUTSIDE OF THE [place] IN LAST 30 DAYS: No - Related Data Allergies/Adverse Reactions: phenytoin sodium [From Dilantin] Allergy (Verified 02/25/17 13:31) phenytoin sodium extended [From Dilantin] Allergy (Verified 02/25/17 13:31) Past Medical History - Social History Smoking Status: Never Smoker Chew tobacco use (# tins/day): No Frequency of alcohol use: None Drug Abuse: None Family History: Reviewed & Not Pertinent Patient has suicidal ideation: No Patient has homicidal ideation: No - Past Medical History Cardiac Medical History: Reports: Hx Hypercholesterolemia, Hx Hypertension Neurological Medical History: Reports: Hx Migraine, Hx Seizures Endocrine Medical History: Denies: Hx Diabetes Mellitus Type 1, Hx Diabetes Mellitus Type 2 Renal/ Medical History: Denies: Hx Peritoneal Dialysis Musculoskeletal Medical History: Reports Hx Arthritis Psychiatric Medical History: Reports: Hx Anxiety, Hx Depression Traumatic Medical History: Reports: Hx Traumatic Brain Injury Past Surgical History: Reports: Hx Neurologic Surgery - Open skull fracture, craniotomy repair, Hx Orthopedic Surgery - Hand surgery - Immunizations Hx Diphtheria, Pertussis, Tetanus Vaccination: Yes Physical Exam - Vital signs Vitals: Pulse Ox 94 11/14/17 16:08 Course - Vital Signs Vital signs: Temp Pulse Resp BP Pulse Ox 28 H 122/51 L 92 11/14/17 18:30 11/14/17 18:30 11/14/17 18:30 - Laboratory Result Diagrams: 11/14/17 16:10 11/14/17 16:10 Laboratory results interpreted by me: 11/14/17 11/14/17 11/14/17 16:10 16:10 17:30 RDW 15.4 H Urine Protein 30 H Urine Blood LARGE H Urine Urobilinogen 4.0 H Ur Leukocyte Esterase TRACE H Valproic Acid < 10.0 L Discharge - Discharge Clinical Impression: Seizure Condition: Good Instructions: Seizure, Known Epileptic ([facility]) Additional Instructions: Follow-up with your primary care physician return to ER symptoms worsen take medication at home as previously prescribed. Referrals: JALEN BRUMFIELD DO [Primary Care Provider] - Follow up as needed
--- NOTE | 2017-11-14 19:37 | EKG REPORT ---
SEVERITY:- NORMAL ECG - SINUS RHYTHM : Confirmed by: Galdys Amaya 14-Nov-2017 19:37:09
[2017-11-14 19:47] VITALS: BP 111/64
--- NOTE | 2017-11-14 21:57 | ER Document Report ---
ED General - General Chief Complaint: Seizure Stated Complaint: POSSIBLE SEIZURE Time Seen by Provider: 11/14/17 16:10 TRAVEL OUTSIDE OF THE [place] IN LAST 30 DAYS: No - HPI Patient complains to provider of: Seizure Notes: Patient with a history of seizure disorder patient was found by EMS actively having a seizure was given Versed. Patient was postictal upon my evaluation able to follow simple commands open his eyes and move his hands. Observation was performed on the patient there is no family at bedside most of the HPI is unobtainable at this time because the patient's postictal state most of the patient's information is obtained from previous visit otherwise patient looks to be in no obvious distress upon my evaluation. - Related Data Allergies/Adverse Reactions: phenytoin sodium [From Dilantin] Allergy (Verified 02/25/17 13:31) phenytoin sodium extended [From Dilantin] Allergy (Verified 02/25/17 13:31) Past Medical History - Social History Smoking Status: Never Smoker Chew tobacco use (# tins/day): No Frequency of alcohol use: None Drug Abuse: None Family History: Reviewed & Not Pertinent Patient has suicidal ideation: No Patient has homicidal ideation: No - Past Medical History Cardiac Medical History: Reports: Hx Hypercholesterolemia, Hx Hypertension Neurological Medical History: Reports: Hx Migraine, Hx Seizures Endocrine Medical History: Denies: Hx Diabetes Mellitus Type 1, Hx Diabetes Mellitus Type 2 Renal/ Medical History: Denies: Hx Peritoneal Dialysis Musculoskeletal Medical History: Reports Hx Arthritis Psychiatric Medical History: Reports: Hx Anxiety, Hx Depression Traumatic Medical History: Reports: Hx Traumatic Brain Injury Past Surgical History: Reports: Hx Neurologic Surgery - Open skull fracture, craniotomy repair, Hx Orthopedic Surgery - Hand surgery - Immunizations Hx Diphtheria, Pertussis, Tetanus Vaccination: Yes Review of Systems - Review of Systems Constitutional: No symptoms reported EENT: No symptoms reported Cardiovascular: No symptoms reported Respiratory: No symptoms reported Gastrointestinal: No symptoms reported Genitourinary: No symptoms reported Male Genitourinary: No symptoms reported Musculoskeletal: No symptoms reported Skin: No symptoms reported Hematologic/Lymphatic: No symptoms reported Neurological/Psychological: Seizure -: Yes All other systems reviewed and negative Physical Exam - Vital signs Vitals: Pulse Ox 94 11/14/17 16:08 Interpretation: Normal - General General appearance: Appears well, Alert - HEENT Head: Normocephalic, Atraumatic Eyes: Normal Pupils: PERRL - Respiratory Respiratory status: No respiratory distress Chest status: Nontender Breath sounds: Normal Chest palpation: Normal - Cardiovascular Rhythm: Regular Heart sounds: Normal auscultation Murmur: No - Abdominal Inspection: Normal Distension: No distension Bowel sounds: Normal Tenderness: Nontender Organomegaly: No organomegaly - Back Back: Normal, Nontender - Extremities General upper extremity: Normal inspection, Nontender, Normal color, Normal ROM , Normal temperature General lower extremity: Normal inspection, Nontender, Normal color, Normal ROM , Normal temperature, Normal weight bearing. No: Ivan's sign - Neurological Neuro grossly intact: Yes Orientation: AAOx4 Rashmi Coma Scale Eye Opening: Spontaneous Rashmi Coma Scale Verbal: Oriented [place] Coma Scale Motor: Obeys Commands [place] Coma Scale Total: 15 Speech: Normal Motor strength normal: LUE, RUE, LLE, RLE Sensory: Normal - Psychological Associated symptoms: Normal affect, Normal mood - Skin Skin Temperature: Warm Skin Moisture: Dry Skin Color: Normal Course - Re-evaluation Re-evalutation: 11/14/17 21:56 Patient continued to be monitored here in ER with improvement of his neurological status. Chest x-ray was performed showing possible pneumonia however clinical examination does not lend itself to pneumonia patient does not give the history of pneumonia as well. Alert and oriented x3 upon my last evaluation requesting to be discharged at that time. Denies any cough denies production denies any fevers. Patient states that a has been compliant with his medication and denies any illicit drug or alcohol abuse. Patient has been stable during his time here in ER will be discharged into the custody of his mother - Vital Signs Vital signs: Temp Pulse Resp BP Pulse Ox 12 111/64 93 11/14/17 19:01 11/14/17 19:01 11/14/17 19:01 - Laboratory Result Diagrams: 11/14/17 16:10 11/14/17 16:10 Laboratory results interpreted by me: 11/14/17 11/14/17 11/14/17 16:10 16:10 17:30 RDW 15.4 H Urine Protein 30 H Urine Blood LARGE H Urine Urobilinogen 4.0 H Ur Leukocyte Esterase TRACE H Valproic Acid < 10.0 L Discharge - Discharge Clinical Impression: Seizure Condition: Good Instructions: Seizure, Known Epileptic ([facility]) Additional Instructions: Follow-up with your primary care physician return to ER symptoms worsen take medication at home as previously prescribed. Referrals: JALEN BRUMFIELD, DO [Primary Care Provider] - Follow up as needed
== END 2017-11-14 19:47 | disposition home or self-care (01) ==
LOC: ER 16:05
DX: G40.909 Epilepsy, unspecified, not intractable, without status epilepticus (principal); E78.00 Pure hypercholesterolemia, unspecified; I10 Essential (primary) hypertension; Z87.820 Personal history of traumatic brain injury
CPT/HCPCS: 93005; 99284; 96365; 96366; 36415; 80307 ×2; 85025; 80048; 81001; 80164; 71045; 93010; J1953

== ENCOUNTER 2019-03-06 02:41 | Emergency (ER) | payer OTHER, MEDICARE, MEDICAID ==
[2019-03-06 03:20] LABS: ABSOLUTE BASOPHILS # (AUTO) 0.1 10^3/uL (0.0-0.2); ABSOLUTE EOSINOPHILS # (AUTO) 0.3 10^3/uL (0.0-0.6); ABSOLUTE LYMPHOCYTES (AUTO) 3.1 10^3/uL (0.5-4.7); ABSOLUTE MONOCYTES (AUTO) 1.3 10^3/uL (0.1-1.4); ABSOLUTE NEUT (AUTO) 7.8 10^3/uL (1.7-8.2); BASOPHILS % (AUTO) 0.7 % (0-2); EOSINOPHILS % (AUTO) 2.1 % (0-6); HEMATOCRIT 48.8 % (37.9-51.0); HEMOGLOBIN 16.4 g/dL (13.5-17.0); LYMPHOCYTES % (AUTO) 24.7 % (13-45); MEAN CORPUSCULAR HEMOGLOBIN 30.7 pg (27.0-33.4); MEAN CORPUSCULAR HGB CONC 33.6 g/dL (32.0-36.0); MEAN CORPUSCULAR VOLUME 91 fl (80-97); MONOCYTES % (AUTO) 10.2 % (3-13); PLATELET COUNT 216 10^3/uL (150-450); RED BLOOD COUNT 5.34 10^6/uL (4.35-5.55); RED CELL DISTRIBUTION WIDTH 14.8 % (11.5-14.0); SEGMENTED NEUTROPHILS % (AUTO) 62.3 % (42-78); TOTAL CELLS COUNTED % (AUTO) 100 %; WHITE BLOOD COUNT 12.4 10^3/uL (4.0-10.5)
--- NOTE | 2019-03-06 03:34 | ER Document Report ---
ED General - General Chief Complaint: Chest Pain > 30 Stated Complaint: CHEST PAINS Time Seen by Provider: 03/06/19 03:24 Notes: Patient is a 49-year-old male that comes emergency department for chief complaint of a bad cough, pain in the center of his chest, occasional nausea, sore throat, and generalized weakness. He states he started getting cough and pain from it about 2 weeks ago. He denies fever, vomiting, abdominal pain, headache, passing out. He does smoke, denies COPD or asthma. He denies history of NV or CAD. Past medical history includes hypertension, hyperlipidemia, obstructive sleep apnea, seizures. Mother at bedside. TRAVEL OUTSIDE OF THE [place] IN LAST 30 DAYS: No - Related Data Allergies/Adverse Reactions: phenytoin sodium [From Dilantin] Allergy (Verified 02/25/17 13:31) phenytoin sodium extended [From Dilantin] Allergy (Verified 02/25/17 13:31) Home Medications: [id number] PO QD. SIMVASTATIN 20MG PO QHS. LAMOTRIGINE 250MG PO BID. LEVETIRACETAM 1000MG BID. BENZTROPINE 2MG BID. MELOXICAM 15 MG PO QD. CITALOPRAM 40MG PO QD Past Medical History - General Information source: Patient - Social History Smoking Status: Current Every Day Smoker Chew tobacco use (# tins/day): No Smoking Education Provided: Yes - >4 min Frequency of alcohol use: None Drug Abuse: None Lives with: Family Family History: Reviewed & Not Pertinent Patient has suicidal ideation: No Patient has homicidal ideation: No - Past Medical History Cardiac Medical History: Reports: Hx Hypercholesterolemia, Hx Hypertension Neurological Medical History: Reports: Hx Migraine, Hx Seizures Endocrine Medical History: Denies: Hx Diabetes Mellitus Type 1, Hx Diabetes Mellitus Type 2 Renal/ Medical History: Denies: Hx Peritoneal Dialysis Musculoskeletal Medical History: Reports Hx Arthritis Psychiatric Medical History: Reports: Hx Anxiety, Hx Depression Traumatic Medical History: Reports: Hx Traumatic Brain Injury Past Surgical History: Reports: Hx Neurologic Surgery - Open skull fracture, craniotomy repair, Hx Orthopedic Surgery - Hand surgery - Immunizations Hx Diphtheria, Pertussis, Tetanus Vaccination: Yes Review of Systems - Review of Systems Constitutional: See HPI EENT: No symptoms reported Cardiovascular: See HPI Respiratory: See HPI Gastrointestinal: No symptoms reported Genitourinary: No symptoms reported Male Genitourinary: No symptoms reported Musculoskeletal: No symptoms reported Skin: No symptoms reported Hematologic/Lymphatic: No symptoms reported Neurological/Psychological: No symptoms reported Physical Exam - Vital signs Vitals: Resp Pulse Ox 18 97 03/06/19 02:59 03/06/19 02:59 - Notes Notes: GENERAL: Alert, interacts well. No acute distress. HEAD: Normocephalic, atraumatic. EYES: Pupils equal, round, and reactive to light. Extraocular movements intact. ENT: Oral mucosa moist, tongue midline. Oropharynx unremarkable. Airway patent. Mild nasal congestion,, no nasal septal hematoma NECK: Full range of motion. Supple. Trachea midline. LUNGS: A few scattered coarse breath sounds but no overt wheezes, rales, rhonchi. No labored breathing or tachypnea. There is some generalized tenderness over the anterior chest bilaterally. No erythema, swelling, severe tenderness, crepitus HEART: Regular rate and rhythm. No murmur ABDOMEN: Soft, non-tender. Non-distended. EXTREMITIES: Moves all 4 extremities spontaneously. No edema, normal radial and dorsalis pedis pulses bilaterally. No cyanosis. BACK: no cervical, thoracic, lumbar midline tenderness. No saddle anesthesia, normal distal neurovascular exam. Moves all extremities in full range of motion. NEUROLOGICAL: Alert and oriented x3. Normal speech. Cranial nerves II through XII grossly intact. PSYCH: Normal affect, normal mood. SKIN: Warm, dry, normal turgor. No rashes or lesions noted. Course - Re-evaluation Re-evalutation: Patient with intermittent congested cough, pain with palpation over the anterior ribs which is very mild. He has no tachypnea or hypoxia. He has scattered coarse breath sounds but no overt wheezing. No labored breathing. Vital signs unremarkable with no fever. Influenza negative, EKG unremarkable, chest x-ray negative for pneumonia. CBC does show mild leukocytosis which is nonspecific. No bandemia. Chemistry unremarkable, troponin is negative despite symptoms going on for couple of weeks. Patient states his cough is worsening, mother states he is worsened over the past day or so. He does have mild leukocytosis. Possible early developing pneumonia but more likely bronchitis in the setting of smoking. Patient is reporting admit wheezing at home. He will provided with spacer, albuterol refill, steroids, antibiotics after discussion. Very low suspicion of ACS based on the overall picture. Patient has close follow-up. Discussed smoking cessation at length. Discussed work-up and return cautions at length. Patient and mother state understanding and agreement with plan. - Vital Signs Vital signs: Temp Pulse Resp BP Pulse Ox 98.1 F 70 17 158/89 H 97 03/06/19 03:09 03/06/19 03:09 03/06/19 04:02 03/06/19 04:02 03/06/19 04:02 - Laboratory Result Diagrams: 03/06/19 03:05 03/06/19 03:05 Laboratory results interpreted by me: 03/06/19 03/06/19 03:05 03:05 WBC 12.4 H RDW 14.8 H Carbon Dioxide 31 H Glucose 124 H AST 16 L - EKG Interpretation by Me Additional EKG results interpreted by me: EKG shows sinus rhythm at a rate of 72, normal axis, no T wave inversions or ST segment changes in consecutive leads Discharge - Discharge Clinical Impression: Painful cough, Tobacco abuse Upper respiratory infection Qualifiers: URI type: unspecified URI Qualified Code(s): J06.9 - Acute upper respiratory infection, unspecified Condition: Stable Disposition: HOME, SELF-CARE Additional Instructions: Your evaluation indicates bronchitis, and upper respiratory infection. Because of your worsening symptoms and overall evaluation you are also being treated for possible early developing underlying pneumonia. Take the antibiotics as prescribed, take the prednisone as prescribed, use the albuterol inhaler with the spacer. Stop smoking. Rest. Follow-up closely with primary care for additional evalu ation. Return if you worsen including developing fever, difficulty breathing, or any other concerning or worsening symptoms. Prescriptions: Prednisone [Deltasone 20 mg Tablet] 3 tab PO DAILY 5 Days tablet Doxycycline Hyclate 100 mg PO BID #14 capsule Albuterol Sulfate [Proair HFA Inhalation Aerosol 8.5 gm MDI] 2 puff IH Q4H PRN #1 mdi PRN Reason: Forms: Smoking Cessation Education
[2019-03-06 03:37] LABS: ALBUMIN 4.2 g/dL (3.5-5.0); ALKALINE PHOSPHATASE 90 U/L (38-126); ANION GAP 8 (5-19); ASPARTATE AMINO TRANSFERASE 16 U/L (17-59); BILIRUBIN,DIRECT 0.3 mg/dL (0.0-0.4); BILIRUBIN,TOTAL 0.5 mg/dL (0.2-1.3); BLOOD UREA NITROGEN 11 mg/dL (7-20); CALCIUM 9.7 mg/dL (8.4-10.2); CARBON DIOXIDE 31 mmol/L (22-30); CHLORIDE 101 mmol/L (98-107); CREATINE KINASE 106 U/L (55-170); GLUCOSE 124 mg/dL (75-110); POTASSIUM 4.2 mmol/L (3.6-5.0); TOTAL PROTEIN 7.2 g/dL (6.3-8.2)
[2019-03-06 03:49] LABS: CREATINE KINASE MB 0.49 ng/mL (<4.55)
[2019-03-06 03:51] LABS: TROPONIN I < 0.012 ng/mL
[2019-03-06 04:03] LABS: A TYPE INFLUENZA AG NEGATIVE (NEGATIVE); B INFLUENZA AG NEGATIVE (NEGATIVE)
--- NOTE | 2019-03-06 04:11 | RADIOLOGY REPORT (SQ) ---
EXAM DESCRIPTION: X-RAY CHEST ONE VIEW CLINICAL HISTORY: 49 years, Male, CP COMPARISON: None. FINDINGS: Portable upright chest at 0322 hours on 03/06/2019 with an apical lordotic projection. Two films were obtained. EKG leads overlie the chest. The lungs are mildly hypoinflated and clear. The costophrenic angles are sharp. The aortic arch is calcified. The cardiac silhouette, hilar regions, trachea, soft tissues and bony structures are unremarkable aside from degenerative changes. IMPRESSION: No acute cardiopulmonary disease.
[2019-03-06 04:47] VITALS: BP 158/89
--- NOTE | 2019-03-06 07:39 | EKG REPORT ---
SEVERITY:- NORMAL ECG - SINUS RHYTHM : Confirmed by: Gus Adams MD 06-Mar-2019 07:38:17
== END 2019-03-06 04:47 | disposition home or self-care (01) ==
LOC: ER 02:41
DX: J06.9 Acute upper respiratory infection, unspecified (principal); R05 Cough; R07.81 Pleurodynia; J02.9 Acute pharyngitis, unspecified; R11.0 Nausea; R09.81 Nasal congestion; R53.1 Weakness; E78.5 Hyperlipidemia, unspecified; R56.9 Unspecified convulsions; I10 Essential (primary) hypertension; E78.00 Pure hypercholesterolemia, unspecified; F32.9 Major depressive disorder, single episode, unspecified; F41.9 Anxiety disorder, unspecified; M19.90 Unspecified osteoarthritis, unspecified site; Z79.899 Other long term (current) drug therapy; Z79.1 Long term (current) use of non-steroidal anti-inflammatories (NSAID); F17.200 Nicotine dependence, unspecified, uncomplicated; Z71.6 Tobacco abuse counseling
CPT/HCPCS: 36415; 71045; 80053; 82550; 82553; 84484; 85025; 87804; 93005; 93010; 99285

== ENCOUNTER 2019-03-07 22:13 | Emergency (ER) | payer OTHER, MEDICARE, MEDICAID ==
[2019-03-07 23:01] LABS: ABSOLUTE LYMPHOCYTES (AUTO) 1.8 10^3/uL (0.5-4.7); ABSOLUTE MONOCYTES (AUTO) 0.4 10^3/uL (0.1-1.4); ABSOLUTE NEUT (AUTO) 8.5 10^3/uL (1.7-8.2); BASOPHILS % (AUTO) 0.2 % (0-2); HEMATOCRIT 50.5 % (37.9-51.0); HEMOGLOBIN 16.8 g/dL (13.5-17.0); MEAN CORPUSCULAR HEMOGLOBIN 30.4 pg (27.0-33.4); MEAN CORPUSCULAR HGB CONC 33.3 g/dL (32.0-36.0); MEAN CORPUSCULAR VOLUME 91 fl (80-97); MONOCYTES % (AUTO) 3.3 % (3-13); PLATELET COUNT 254 10^3/uL (150-450); RED BLOOD COUNT 5.54 10^6/uL (4.35-5.55); SEGMENTED NEUTROPHILS % (AUTO) 79.5 % (42-78); TOTAL CELLS COUNTED % (AUTO) 100 %; WHITE BLOOD COUNT 10.7 10^3/uL (4.0-10.5)
[2019-03-07 23:11] LABS: ALBUMIN 4.6 g/dL (3.5-5.0); ALCOHOL < 10 mg/dL (NONE DETECTED); ALKALINE PHOSPHATASE 108 U/L (38-126); ANION GAP 13 (5-19); ASPARTATE AMINO TRANSFERASE 18 U/L (17-59); BILIRUBIN,DIRECT 0.4 mg/dL (0.0-0.4); BILIRUBIN,TOTAL 0.4 mg/dL (0.2-1.3); BLOOD UREA NITROGEN 15 mg/dL (7-20); CALCIUM 10.5 mg/dL (8.4-10.2); CARBON DIOXIDE 26 mmol/L (22-30); CHLORIDE 101 mmol/L (98-107); CREATINE KINASE 103 U/L (55-170); GLUCOSE 189 mg/dL (75-110); POTASSIUM 4.7 mmol/L (3.6-5.0); TOTAL PROTEIN 8.1 g/dL (6.3-8.2)
[2019-03-07 23:22] LABS: CREATINE KINASE MB 0.39 ng/mL (<4.55); TROPONIN I < 0.012 ng/mL
[2019-03-07] MEDS ORDERED: IPRATROPIUM/ALBUTEROL 0.5-2.5 MG/3 ML AMPUL NEB ONE (23:46)
[2019-03-07] MEDS ORDERED: LEVETIRACETAM 1000 MG/NACL-ISO 1,000 MG/100 ML RTUPB IV ONE (23:47)
--- NOTE | 2019-03-08 01:04 | RADIOLOGY REPORT (SQ) ---
CLINICAL HISTORY: dyspnea COMPARISON: 03/06/2019 TECHNIQUE: XR CHEST 1 VIEW 03/07/2019 11:47 PM [facility] FINDINGS: Cardiac silhouette is normal in size. Lungs are clear without consolidation, atelectasis, mass or edema. There is no pleural effusion. There is no pneumothorax. There are no acute osseous findings. IMPRESSION: Clear lungs.
[2019-03-08] MEDS ORDERED: ACETAMINOPHEN 325 MG TABLET PO ONE (02:05)
[2019-03-08] MEDS ORDERED: ACETAMINOPHEN 325 MG TABLET ONE (02:31)
--- NOTE | 2019-03-08 04:04 | ER Document Report ---
ED General - General Chief Complaint: Probable Seizure Stated Complaint: POSSIBLE SEIZURE Time Seen by Provider: 03/07/19 23:01 TRAVEL OUTSIDE OF THE [place] IN LAST 30 DAYS: Yes - HPI Notes: Mr. Pedroza is a 49-year-old male with a longstanding history of seizure disorder with a chief complaint of seizure tonight and persistent problems with breathing. Patient was seen here last night for acute bronchitis and is smoking in excess of 1 pack/day. He was started on Augmentin and prednisone last night and says he has filled and started these medicines but he has been smoking heavily again today. He is also using a metered-dose inhaler. Mother says she was with him and he fell to the floor and had a seizure in the bathroom. No trauma is reported. He was postictal when EMS got him initially. He is now fully oriented and complains only of coughing. - Related Data Allergies/Adverse Reactions: phenytoin sodium [From Dilantin] Allergy (Verified 02/25/17 13:31) phenytoin sodium extended [From Dilantin] Allergy (Verified 02/25/17 13:31) Home Medications: Keppra. levetiracetan. atenolol. Mitatican. Benztropin. simvastatin. citalopram Hydrobromide. Lamotrigine. caredilol. folic acid. HCTZ. provastatin. omeprazole Past Medical History - General Information source: Patient, Relative - Social History Smoking Status: Current Every Day Smoker Chew tobacco use (# tins/day): No Frequency of alcohol use: None Drug Abuse: None Family History: Reviewed & Not Pertinent Patient has suicidal ideation: No Patient has homicidal ideation: No - Past Medical History Cardiac Medical History: Reports: Hx Hypercholesterolemia, Hx Hypertension Neurological Medical History: Reports: Hx Migraine, Hx Seizures Endocrine Medical History: Denies: Hx Diabetes Mellitus Type 1, Hx Diabetes Mellitus Type 2 Renal/ Medical History: Denies: Hx Peritoneal Dialysis Musculoskeletal Medical History: Reports Hx Arthritis Psychiatric Medical History: Reports: Hx Anxiety, Hx Depression Traumatic Medical History: Reports: Hx Traumatic Brain Injury Past Surgical History: Reports: Hx Neurologic Surgery - Open skull fracture, craniotomy repair, Hx Orthopedic Surgery - Hand surgery - Immunizations Hx Diphtheria, Pertussis, Tetanus Vaccination: Yes Review of Systems - Review of Systems Notes: Constitutional: Negative for fever. HENT: Negative for sore throat. Eyes: Negative for visual changes. Cardiovascular: Negative for chest pain. Respiratory: As per HPI. Gastrointestinal: Negative for abdominal pain, vomiting or diarrhea. Genitourinary: Negative for dysuria. Musculoskeletal: Negative for back pain. Skin: Negative for rash. Neurological: As per HPI. 10 point ROS negative except as marked above and in HPI. Physical Exam - Vital signs Vitals: Temp Pulse Ox 98.2 F 88 L 03/07/19 22:17 03/07/19 22:17 - Notes Notes: GENERAL: Well-developed well-nourished appearing in no acute distress. SKIN: Good turgor no rashes. HEAD: Normocephalic atraumatic. EYES: PERRLA. EOMI. Conjunctivae and sclerae clear. EARS: CANALS AND TMS CLEAR. NOSE: CLEAR. MOUTH: Moist mucosa. Good dentition. No stridor or edema. No drooling. NECK: Supple. No masses or thyromegaly. No adenopathy. Carotids 2+ without bruits. No JVD. BACK: Symmetrical without tenderness. CHEST: Respirations unlabored. Scattered faint wheezes rhonchi bilaterally. HEART: Regular rhythm. No murmur gallop or rub. ABDOMEN: Soft nontender without masses, organomegaly or rebound. Bowel sounds normally active. No bruits. GENITALIA: Deferred. EXTREMITIES: No edema. No calf tenderness. Cap refill less than 1.5 seconds. Dorsalis pedis and posterior tibial pulses 3+ and symmetrical. NEUROLOGICAL: GCS 15. Alert and oriented x3. Normal gait. Fluent speech. Cranial nerves II through XII intact. Sensorimotor and cerebellar normal. N ormal tone. PSYCHIATRIC: Appropriate affect. Course - Re-evaluation Re-evalutation: 03/08/19 04:03 Patient was given 2 nebulizer treatments here with improvement in his respiratory symptoms. His chest is now essentially clear. He also was given an additional loading dose of Keppra 1000 mg IV. No further evidence of seizure activity or neurologic irritability. He is alert and oriented with a nonfocal neurologic exam. I reemphasized to the patient and to his family members that he MUST STOP SMOKING. - Vital Signs Vital signs: Temp Pulse Resp BP Pulse Ox 98.2 F 24 H 168/71 H 95 03/07/19 22:17 03/08/19 01:01 03/08/19 01:01 03/08/19 01:01 - Laboratory Result Diagrams: 03/07/19 22:17 03/07/19 22:17 Laboratory results interpreted by me: 03/07/19 03/07/19 22:17 22:17 WBC 10.7 H RDW 15.0 H Absolute Neuts (auto) 8.5 H Seg Neutrophils % 79.5 H Glucose 189 H Calcium 10.5 H Discharge - Discharge Clinical Impression: Seizure, Cigarette smoker Acute bronchitis Qualifiers: Bronchitis organism: unspecified organism Qualified Code(s): J20.9 - Acute bronchitis, unspecified Condition: Stable Disposition: HOME, SELF-CARE Additional Instructions: You must stop smoking. Take your previously prescribed medications as directed. Return here as needed for new or worsening symptoms: Pain that is worsening or unimproved Uncontrolled vomiting High fever or shaking chills Overall worsening
[2019-03-08 04:25] VITALS: BP 132/86
[2019-03-08 05:10] LABS: APPEARANCE,URINE CLEAR; BILIRUBIN,URINE NEGATIVE (NEGATIVE); COLOR,URINE YELLOW; GLUCOSE, URINE NEGATIVE (NEGATIVE); KETONES,URINE NEGATIVE (NEGATIVE); LEUKOCYTE ESTERASE,URINE NEGATIVE (NEGATIVE); NITRITE,URINE NEGATIVE (NEGATIVE); PROTEIN,URINE 100 mg/dL (NEGATIVE); URINE SPECIFIC GRAVITY 1.027
== END 2019-03-08 04:28 | disposition home or self-care (01) ==
LOC: ER 22:13
DX: G40.909 Epilepsy, unspecified, not intractable, without status epilepticus (principal); J20.9 Acute bronchitis, unspecified; R05 Cough; R06.2 Wheezing; F17.210 Nicotine dependence, cigarettes, uncomplicated; I10 Essential (primary) hypertension; E78.00 Pure hypercholesterolemia, unspecified; F32.9 Major depressive disorder, single episode, unspecified; F41.9 Anxiety disorder, unspecified; Z79.899 Other long term (current) drug therapy; Z88.8 Allergy status to other drugs, medicaments and biological substances
CPT/HCPCS: 94640; 99284; 96365; 36415; 82553; 80307; 82550; 83735; 85025; 80053; 81001; 84484; 71045; J1953; J7620

== ENCOUNTER 2019-04-20 23:18 | Emergency (ER) | payer OTHER, MEDICARE, MEDICAID ==
[2019-04-20] MEDS ORDERED: LORAZEPAM INJ 2 MG/1 ML VIAL IV ONE (23:23)
[2019-04-20] MEDS ORDERED: LEVETIRACETAM 1000 MG/NACL-ISO 1,000 MG/100 ML RTUPB IV ONE (23:24)
[2019-04-20 23:53] LABS: ABSOLUTE BASOPHILS # (AUTO) 0.1 10^3/uL (0.0-0.2); ABSOLUTE EOSINOPHILS # (AUTO) 0.3 10^3/uL (0.0-0.6); ABSOLUTE LYMPHOCYTES (AUTO) 3.6 10^3/uL (0.5-4.7); ABSOLUTE MONOCYTES (AUTO) 0.8 10^3/uL (0.1-1.4); ABSOLUTE NEUT (AUTO) 8.6 10^3/uL (1.7-8.2); BASOPHILS % (AUTO) 1.1 % (0-2); HEMATOCRIT 48.5 % (37.9-51.0); HEMOGLOBIN 16.2 g/dL (13.5-17.0); LYMPHOCYTES % (AUTO) 26.7 % (13-45); MEAN CORPUSCULAR HEMOGLOBIN 30.5 pg (27.0-33.4); MEAN CORPUSCULAR HGB CONC 33.4 g/dL (32.0-36.0); MEAN CORPUSCULAR VOLUME 92 fl (80-97); MONOCYTES % (AUTO) 5.7 % (3-13); PLATELET COUNT 250 10^3/uL (150-450); RED BLOOD COUNT 5.29 10^6/uL (4.35-5.55); SEGMENTED NEUTROPHILS % (AUTO) 64.5 % (42-78); TOTAL CELLS COUNTED % (AUTO) 100 %; WHITE BLOOD COUNT 13.4 10^3/uL (4.0-10.5)
--- NOTE | 2019-04-21 00:23 | ER Document Report ---
Entered by TYLER RODRIGUEZ SCRIBE 04/20/19 3080 Acting as scribe for:MELVINA SMYTH IV, MD ED Seizure - General Chief Complaint: Seizure Stated Complaint: SEIZURE Time Seen by Provider: 04/20/19 23:20 Mode of Arrival: Stretcher Information source: Emergency Med Personnel Notes: This 49 year old male patient with a history of seizures presents to the ED today with complaints of a seizure that occurred at 2305 tonight. Patient was visiting a patient here at the time. ED nurse states that the patient did not hit his head and that he was being held by [facility] throughout the whole episode. ED nurse reports that the patient had episodes of being alert and or iented. ED nurse states that the patient takes 1000 mg Keppra. - Related Data Allergies/Adverse Reactions: phenytoin sodium [From Dilantin] Allergy (Verified 02/25/17 13:31) phenytoin sodium extended [From Dilantin] Allergy (Verified 02/25/17 13:31) Past Medical History - General Information source: Emergency Med Personnel, [facility] Records - Social History Smoking Status: Unknown if Ever Smoked Cigarette use (# per day): No Chew tobacco use (# tins/day): No Smoking Education Provided: No Family History: Reviewed & Not Pertinent - Past Medical History Cardiac Medical History: Reports: Hx Hypercholesterolemia, Hx Hypertension Neurological Medical History: Reports: Hx Migraine, Hx Seizures Musculoskeletal Medical History: Reports Hx Arthritis Psychiatric Medical History: Reports: Hx Anxiety, Hx Depression Traumatic Medical History: Reports: Hx Traumatic Brain Injury Past Surgical History: Reports: Hx Neurologic Surgery - Open skull fracture, craniotomy repair, Hx Orthopedic Surgery - Hand surgery - Immunizations Hx Diphtheria, Pertussis, Tetanus Vaccination: Yes Review of Systems - Review of Systems Constitutional: No symptoms reported EENT: No symptoms reported Cardiovascular: No symptoms reported Respiratory: No symptoms reported Gastrointestinal: No symptoms reported Genitourinary: No symptoms reported Male Genitourinary: No symptoms reported Musculoskeletal: See HPI. denies: Other - Head injury Skin: No symptoms reported Hematologic/Lymphatic: No symptoms reported Neurological/Psychological: See HPI, Seizure -: Yes All other systems reviewed and negative Physical Exam - Vital signs Vitals: Temp Pulse Resp BP Pulse Ox 98.6 F 74 24 H 119/62 94 04/20/19 23:18 04/20/19 23:18 04/20/19 23:18 04/20/19 23:18 04/20/19 23:18 - General General appearance: Other - Patient is actively seizing. Generalized tonic- clonic seizure activity. Patient is responsive to painful stimuli. - HEENT Head: Normocephalic, Atraumatic Eyes: Normal Pupils: PERRL - Respiratory Respiratory status: Tachypnea Chest status: Nontender Breath sounds: Normal Chest palpation: Normal - Cardiovascular Rhythm: Tachycardia Heart sounds: Normal auscultation Murmur: No Friction rub: No Gallop: None auscultated - Abdominal Inspection: Normal Distension: No distension Bowel sounds: Normal Tenderness: Nontender - Abdomen soft Organomegaly: No organomegaly - Back Back: Normal, Nontender - Extremities General upper extremity: Normal inspection General lower extremity: Normal inspection - Neurological Neuro grossly intact: Yes - Skin Skin Temperature: Warm Skin Moisture: Dry Skin Color: Normal Course - Re-evaluation Re-evalutation: 04/21/19 03:52 Results of ED MSE discussed with patient. All questions were answered. Emergency signs and symptoms, reasons to return to the emergency department discussed with patient. - Vital Signs Vital signs: Temp Pulse Resp BP Pulse Ox 98.6 F 74 24 H 119/66 93 04/20/19 23:18 04/20/19 23:18 04/21/19 00:01 04/21/19 00:01 04/21/19 00:01 - Laboratory Result Diagrams: 04/20/19 23:21 04/20/19 23:21 Laboratory results interpreted by me: 04/20/19 04/20/19 04/20/19 23:21 23:21 23:52 WBC 13.4 H RDW 15.0 H Absolute Neuts (auto) 8.6 H Glucose 112 H Valproic Acid < 10.0 L Carbamazepine < 1.8 L - EKG Interpretation by Me Additional EKG results interpreted by me: 04/21/19 03:53 EKG obtained on 04/21/2019 at 00 25 hours was interpreted by this MD. Findings normal sinus rhythm, rate 70, normal axis, P waves proceed QRS complexes, QRS complexes appear narrow, there are no obvious patterns of ST segment elevation or depression present to suggest acute myocardial ischemia or infarction. Impression normal sinus rhythm with nonspecific ST segments. Discharge - Discharge Clinical Impression: Seizure disorder Condition: Good Disposition: HOME, SELF-CARE Additional Instructions: Return to the Emergency Department without delay if any worse. Follow up with your doctor on 04/22/19. Seizure, Known Epileptic You have had a seizure. Seizures may "break through" in an epileptic due to stress of infection or injury, a change in blood chemistry, or drug and alcohol use. Another common cause is failure to take medication as prescribed. Your doctor has evaluated your situation for the likely cause of this seizure. It is important that you follow his advice concerning any medication changes and follow-up care. Further testing of anti-seizure medication levels in your blood may be necessary. If you have a chassis driver's license, it's important that you DO NOT DRIVE until given permission by your physician. This seizure must be reported to the chassis driver's license bureau. Call the doctor or return if seizures recur, or if new or unusual symptoms arise -- such as severe headache, confusion, excessive sleepiness, local weakness or numbness, neck stiffness, or fever. HOME CARE INSTRUCTIONS & INFORMATION: Thank you for choosing us for your medical needs. We hope you're satisfied with the care you received. After you leave, you must properly care for your problem and, at the same time, observe its progress. Any condition can change. Some illnesses can change rapidly over hours or days. If your condition worsens, return to the Emergency Department or see your physician promptly. ABOUT YOUR X-RAYS AND EKG'S: If you had an EKG or X-rays taken, they have been read by the Emergency Physician. The X-rays and EKG's will also be read by a Radiologist or Bottle House Pumper within 24 hours. If discrepancies are noted, you will be notified by telephone. Please be certain the ED has a correct telephone number & address where you can be reached. Also, realize that some fractures or abnormalities do not show up on initial X-rays. If your symptoms continue, see your physician. ABOUT YOUR LABORATORY TEST: If you had laboratory tests, the results have been reviewed by the Emergency Physician. Some test results (for example cultures) may not be available for several days. You will be contacted if any test result shows you need additional treatment. Please be certain the ED has a correct telephone number and address where you can be reached. ABOUT YOUR MEDICATIONS: You will receive instructions on how to take your medicine on the prescription label you receive. Additional information may be provided by the Pharmacy. If you have questions afterwards, call the ED for clarification or further instructions. Some prescribed medications may cause drowsiness. Do not perform tasks such as driving a car or operating machinery without consulting your Pharmacist. If you feel you need a refill of pain medication, your condition will need re-evaluation. Please do not call for a refill of any medication. ABOUT YOUR SIGNATURE: Signature of this document acknowledges to followin. Understanding that you received emergency treatment and that you may be released before al medical problems are known or treated. Please be certain the ED has a correct phone number & address where you can be reached. 2. Acknowledgement that you will arrange for follow-up care as recommended. 3. Authorization for the Emergency Physician to provide information to your follow-up Physician in order to maximize your care. AT ANY TIME, IF YOUR SYMPTOMS CHANGE SIGNIFICANTLY OR WORSEN OR YOU DEVELOP NEW SYMPTOMS, RETURN TO THE EMERGENCY DEPARTMENT IMMEDIATELY FOR RE-EVALUATION. OUR GOAL IS TO PROVIDE EXCELLENT MEDICAL CARE! WE HOPE THAT WE HAVE MET YOUR EXPECTATIONS DURING YOUR EMERGENCY DEPARTMENT VISIT AND THAT YOU FEEL YOU HAVE RECEIVED EXCELLENT CARE! I personally performed the services described in the documentation, reviewed and edited the documentation which was dictated to the scribe in my presence, and it accurately records my words and actions.
[2019-04-21 00:45] LABS: ALBUMIN 4.3 g/dL (3.5-5.0); ALKALINE PHOSPHATASE 84 U/L (38-126); ANION GAP 10 (5-19); ASPARTATE AMINO TRANSFERASE 18 U/L (17-59); BILIRUBIN,DIRECT 0.1 mg/dL (0.0-0.4); BILIRUBIN,TOTAL 0.4 mg/dL (0.2-1.3); BLOOD UREA NITROGEN 16 mg/dL (7-20); CALCIUM 9.6 mg/dL (8.4-10.2); CARBON DIOXIDE 25 mmol/L (22-30); CHLORIDE 104 mmol/L (98-107); GLUCOSE 112 mg/dL (75-110); POTASSIUM 4.5 mmol/L (3.6-5.0)
[2019-04-21 04:42] VITALS: BP 148/78
--- NOTE | 2019-04-21 09:15 | EKG REPORT ---
SEVERITY:- NORMAL ECG - SINUS RHYTHM : Confirmed by: Gus Adams MD 21-Apr-2019 09:14:25
== END 2019-04-21 04:41 | disposition home or self-care (01) ==
LOC: ER 23:18
DX: G40.909 Epilepsy, unspecified, not intractable, without status epilepticus (principal); E78.00 Pure hypercholesterolemia, unspecified; I10 Essential (primary) hypertension
CPT/HCPCS: 99284; 96374; 96375; 36415; 80177; 80156; 85025; 80053; 80164; 93005; 93010; J2060; J1953

== ENCOUNTER 2019-07-09 14:17 | Emergency (ER) | payer MEDICARE, MEDICAID ==
[2019-07-09] MEDS ORDERED: LEVETIRACETAM 1000 MG/NACL-ISO 1,000 MG/100 ML RTUPB IV ONE (14:42)
[2019-07-09 14:48] LABS: ABSOLUTE EOSINOPHILS # (AUTO) 0.4 10^3/uL (0.0-0.6); ABSOLUTE LYMPHOCYTES (AUTO) 2.4 10^3/uL (0.5-4.7); ABSOLUTE MONOCYTES (AUTO) 0.7 10^3/uL (0.1-1.4); ABSOLUTE NEUT (AUTO) 4.6 10^3/uL (1.7-8.2); BASOPHILS % (AUTO) 0.2 % (0-2); EOSINOPHILS % (AUTO) 4.4 % (0-6); HEMATOCRIT 47.5 % (37.9-51.0); HEMOGLOBIN 16.2 g/dL (13.5-17.0); LYMPHOCYTES % (AUTO) 30.4 % (13-45); MEAN CORPUSCULAR HEMOGLOBIN 30.8 pg (27.0-33.4); MEAN CORPUSCULAR VOLUME 90 fl (80-97); MONOCYTES % (AUTO) 8.3 % (3-13); PLATELET COUNT 237 10^3/uL (150-450); RED BLOOD COUNT 5.26 10^6/uL (4.35-5.55); SEGMENTED NEUTROPHILS % (AUTO) 56.7 % (42-78); TOTAL CELLS COUNTED % (AUTO) 100 %; WHITE BLOOD COUNT 8.1 10^3/uL (4.0-10.5)
[2019-07-09 15:11] LABS: ALBUMIN 4.2 g/dL (3.5-5.0); ALKALINE PHOSPHATASE 100 U/L (38-126); ANION GAP 7 (5-19); ASPARTATE AMINO TRANSFERASE 18 U/L (17-59); BILIRUBIN,DIRECT 0.1 mg/dL (0.0-0.4); BILIRUBIN,TOTAL 0.5 mg/dL (0.2-1.3); BLOOD UREA NITROGEN 11 mg/dL (7-20); CALCIUM 9.5 mg/dL (8.4-10.2); CARBON DIOXIDE 27 mmol/L (22-30); CHLORIDE 106 mmol/L (98-107); GLUCOSE 102 mg/dL (75-110); POTASSIUM 4.7 mmol/L (3.6-5.0); TOTAL PROTEIN 6.8 g/dL (6.3-8.2)
--- NOTE | 2019-07-09 15:39 | RADIOLOGY REPORT (SQ) ---
EXAM DESCRIPTION: CT HEAD WITHOUT IMAGES COMPLETED DATE/TIME: 07/09/2019 2:21 pm REASON FOR STUDY: seizure/ams COMPARISON: 02/25/2017 TECHNIQUE: Axial images acquired through the brain without intravenous contrast. Images reviewed wi th bone, brain and subdural windows. Images stored on PACS. All CT scanners at this facility use dose modulation, iterative reconstruction, and/or weight based d osing when appropriate to reduce radiation dose to as low as reasonably achievable (ALARA). [facility]: Dose Right [facility]: CareDose [facility]: Dose Right [facility]: Teradose 4D [facility]: [employer] RADIATION DOSE: CT Rad equipment meets quality standard of care and radiation dose reduction techniq ues were employed. CTDIvol: 53.2 mGy. DLP: 1044 mGy-cm. mGy. LIMITATIONS: None. FINDINGS: VENTRICLES: Normal size and contour. CEREBRUM: No masses. No hemorrhage. No midline shift. No evidence for acute infarction. Encephalom alacia and gliosis in the right frontal lobe is stable from prior. Normal barrera-white matter differen tiation. CEREBELLUM: No masses. No hemorrhage. No alteration of density. No evidence for acute infarction. EXTRAAXIAL SPACES: No fluid collections. No masses. ORBITS AND GLOBE: Surgical fixation right globe and orbit unchanged. No intra- or extraconal masses . Normal contour of globe without masses. CALVARIUM: Frontal and parietal craniotomy sutures are unchanged. Plate fixation of the right zygoma tic arch unchanged. PARANASAL SINUSES: Mucosal thickening inferior left maxillary sinus. No air-fluid level. SOFT TISSUES: No mass or hematoma. OTHER: No other significant finding. IMPRESSION: 1. No acute intracranial hemorrhage, mass, or evidence of acute territorial infarct. 2. Chronic encephalomalacia and gliosis in the right frontal lobe, stable. 3. Craniotomy and postsurgical changes in the right facial bones, stable. EVIDENCE OF ACUTE STROKE: NO. COMMENT: Quality ID # [id number]: Final reports with documentation of one or more dose reduction techniques (e.g., Automated exposure control, adjustment of the mA and/or kV according to patient size, use of iterative reconstruction technique) TECHNICAL DOCUMENTATION: JOB ID: [id number] 2010 [employer]- All Rights Reserved Reading location - IP/workstation name: [email or web address]
--- NOTE | 2019-07-09 17:09 | ER Document Report ---
ED General - General Chief Complaint: Seizure Stated Complaint: POSSIBLE SEIZURE Time Seen by Provider: 07/09/19 14:30 Mode of Arrival: Ambulatory Information source: Patient TRAVEL OUTSIDE OF THE [place] IN LAST 30 DAYS: No - HPI Notes: Patient presents by EMS with seizure-like activity. Patient has a known history of traumatic brain injury with chronic seizure disorder. Patient had tonic- clonic activity witnessed today by family and EMS was called. EMS gave 4 mg of Versed in route and stated the patient had no more seizure activity. On arrival patient is obviously postictal and unable to give me any history. Patient's symptoms were severe. They were constant. They are made better apparently with Versed nothing on the makes them worse. No known radiation of the symptoms. No recent fever cough cold congestion. No known new trauma. - Related Data Allergies/Adverse Reactions: phenytoin sodium [From Dilantin] Allergy (Verified 07/09/19 14:46) phenytoin sodium extended [From Dilantin] Allergy (Verified 07/09/19 14:46) Past Medical History - General Information source: [facility] Records - Social History Smoking Status: Former Smoker Frequency of alcohol use: None Drug Abuse: None Family History: Reviewed & Not Pertinent Patient has homicidal ideation: No - Past Medical History Cardiac Medical History: Reports: Hx Hypercholesterolemia, Hx Hypertension Neurological Medical History: Reports: Hx Migraine, Hx Seizures Endocrine Medical History: Denies: Hx Diabetes Mellitus Type 1, Hx Diabetes Ester litus Type 2 Renal/ Medical History: Denies: Hx Peritoneal Dialysis Musculoskeletal Medical History: Reports Hx Arthritis Psychiatric Medical History: Reports: Hx Anxiety, Hx Depression Traumatic Medical History: Reports: Hx Traumatic Brain Injury Past Surgical History: Reports: Hx Neurologic Surgery - Open skull fracture, craniotomy repair, Hx Orthopedic Surgery - Hand surgery - Immunizations Hx Diphtheria, Pertussis, Tetanus Vaccination: Yes Review of Systems - Review of Systems -: Yes ROS unobtainable due to patient's medical condition - I cannot obtain review of symptoms due to patient's altered mental status Physical Exam - Vital signs Vitals: Resp Pulse Ox 19 96 07/09/19 14:27 07/09/19 14:27 Interpretation: Normal - General General appearance: Lethargic In distress: None - HEENT Head: Normocephalic, Atraumatic Eyes: Normal Pupils: PERRL - Respiratory Respiratory status: No respiratory distress Chest status: Nontender Breath sounds: Normal Chest palpation: Normal - Cardiovascular Rhythm: Regular Heart sounds: Normal auscultation Murmur: No - Abdominal Inspection: Normal Distension: No distension Bowel sounds: Normal Tenderness: Nontender Organomegaly: No organomegaly - Back Back: Normal - Extremities General upper extremity: Normal inspection, Normal color, Normal temperature General lower extremity: Normal inspection, Normal color, Normal temperature - Neurological Cognition: Confused Rashmi Coma Scale Eye Opening: To Voice Hope Coma Scale Verbal: Incomprehensible Hope Coma Scale Motor: Localizes to Pain Rashmi Coma Scale Total: 10 Speech: Other - Mumbles incoherently Sensory: Normal - Psychological Associated symptoms: Confused, Psychomotor depression - Skin Skin Temperature: Warm Skin Moisture: Dry Skin Color: Normal Course - Re-evaluation Re-evalutation: 07/09/19 17:08 Patient presents after an apparent seizure. I did load him with Keppra here. He did receive 4 Versed in route. He has had no further seizure-like activity here. However patient will not wake up and come back to his baseline neurological status. He does arouse to voice but he mumbles incomprehensibly. I cannot get the patient to follow commands or answer questions full words. I have reassessed the patient numerous times but this is not changing. Therefore I think the patient is best if he has evaluated by neurology and observed in the hospital. I am unable to do that here since we do not have neurology. I have discussed the case with [facility] who has accepted the patient in transfer. Patient's head CT is unremarkable. Laboratories are also unremarkable. - Vital Signs Vital signs: Temp Pulse Resp BP Pulse Ox 97.6 F 28 H 121/67 96 07/09/19 14:41 07/09/19 16:31 07/09/19 16:31 07/09/19 16:31 - Laboratory Result Diagrams: 07/09/19 14:27 07/09/19 14:27 Laboratory results interpreted by me: 07/09/19 14:27 RDW 15.0 H - Diagnostic Test Radiology reviewed: Image reviewed, Reports reviewed Discharge - Discharge Clinical Impression: Seizure Condition: Serious Disposition: [facility]
[2019-07-09 19:45] VITALS: BP 139/101
== END 2019-07-09 19:45 | disposition home or self-care (01) ==
LOC: ER 14:17
DX: R56.9 Unspecified convulsions (principal); R53.83 Other fatigue; E78.00 Pure hypercholesterolemia, unspecified; I10 Essential (primary) hypertension; Z87.820 Personal history of traumatic brain injury
CPT/HCPCS: 99285; 96374; 36415; 80307; 85025; 80053; 70450; J1953

== ENCOUNTER 2019-09-16 11:54 | Emergency (ER) | payer MEDICARE, MEDICAID ==
[2019-09-16] MEDS ORDERED: LEVETIRACETAM 1000 MG/NACL-ISO 1,000 MG/100 ML RTUPB IV ONE (12:05)
--- NOTE | 2019-09-16 12:12 | ER Document Report ---
ED General - General Chief Complaint: Weakness Stated Complaint: WEAKNESS Time Seen by Provider: 09/16/19 12:00 TRAVEL OUTSIDE OF THE [place] IN LAST 30 DAYS: No - HPI Notes: Chief complaint: Seizure History of present illness: 49-year-old male with longstanding history of seizure disorder transported here after experience generalized tonic-clonic seizure which lasted greater than 5 minutes at home according to family members. He apparently had a second seizure during transport per EMS. They gave him some IM Versed. He is currently postictal. I have seen this patient previously for seizures here in emergency department looks like he has had multiple ED visits for same. - Related Data Allergies/Adverse Reactions: phenytoin sodium [From Dilantin] Allergy (Verified 07/09/19 14:46) phenytoin sodium extended [From Dilantin] Allergy (Verified 07/09/19 14:46) Past Medical History - General Information source: Emergency [facility] Person[facility] Records Cannot obtain history due to: Altered mental status - Social History Smoking Status: Current Every Day Smoker Family History: Reviewed & Not Pertinent - Past Medical History Cardiac Medical History: Reports: Hx Hypercholesterolemia, Hx Hypertension Pulmonary Medical History: Reports: Hx Asthma Neurological Medical History: Reports: Hx Migraine, Hx Seizures Endocrine Medical History: Denies: Hx Diabetes Mellitus Type 1, Hx Diabetes Arely itus Type 2 Renal/ Medical History: Denies: Hx Peritoneal Dialysis Musculoskeletal Medical History: Reports Hx Arthritis Psychiatric Medical History: Reports: Hx Anxiety, Hx Depression Traumatic Medical History: Reports: Hx Traumatic Brain Injury Past Surgical History: Reports: Hx Neurologic Surgery - Open skull fracture, craniotomy repair, Hx Orthopedic Surgery - Hand surgery - Immunizations Hx Diphtheria, Pertussis, Tetanus Vaccination: Yes Review of Systems - Review of Systems -: Yes ROS unobtainable due to patient's medical condition Physical Exam - Vital signs Vitals: Resp Pulse Ox 25 H 94 09/16/19 11:59 09/16/19 11:59 - Notes Notes: GENERAL: Somewhat obese male of approximately reported age currently postictal. SKIN: Good turgor no rashes. HEAD: Normocephalic atraumatic. EYES: PERRLA. EOMI. Conjunctivae and sclerae clear. EARS: CANALS AND TMS CLEAR. NOSE: CLEAR. MOUTH: Moist mucosa. Poor dentition. Gag reflex intact. No stridor or edema. No drooling. NECK: Supple. No masses or thyromegaly. No adenopathy. Carotids 2+ without bruits. No JVD. BACK: Symmetrical without tenderness. CHEST: Respirations unlabored. Breath sounds clear and symmetrical. HEART: Regular rhythm. No murmur gallop or rub. ABDOMEN: Soft nontender without masses, organomegaly or rebound. Bowel sounds normally active. No bruits. GENITALIA: Deferred. EXTREMITIES: No edema. No calf tenderness. Cap refill less than 1.5 seconds. Dorsalis pedis and posterior tibial pulses 3+ and symmetrical. NEUROLOGICAL: GCS 9. Postictal. Intermittent grunting sounds. Localizes pain. Eyes open to painful stimuli. Course - Re-evaluation Re-evalutation: 09/16/19 13:47 Patient is very obtunded and postictal with a GCS of 9 on arrival. He will now open his eyes to verbal stimuli and is following simple commands. He is able to tell me his name although he still disoriented to place and time. His current GCS is 13. Negative head CT. Lactate is normal. VBG is normal. CBC and chemistry profile are unremarkable. Chest x-ray normal per radiologist. 09/16/19 18:28 Mr. Pedroza is now awake and alert and able to ambulate in the room without assistance. He is requesting discharge home and I feel this to be appropriate. Findings, clinical impression and plan of treatment have been discussed with patient/family. Understanding of current findings and recommendations has been acknowledged by them and there is agreement regarding disposition and follow-up. - Vital Signs Vital signs: Temp Pulse Resp BP Pulse Ox 98.7 F 21 H 108/66 96 09/16/19 12:34 09/16/19 18:18 09/16/19 18:01 09/16/19 18:18 - Laboratory Result Diagrams: 09/16/19 12:02 09/16/19 12:02 Laboratory results interpreted by me: 09/16/19 12:02 RDW 16.0 H Discharge - Discharge Clinical Impression: Seizure Condition: Stable Disposition: HOME, SELF-CARE Additional Instructions: Remain on your usual seizure medications. Try to avoid missing doses of the medication. Do not smoke. Do not drink beer or wine or whiskey. Do not operate an automobile or any type of machinery within the next 3 days. Follow-up with your primary physician this week. You may return to the emergency department for any new or worsening symptoms.
[2019-09-16 12:25] LABS: ABSOLUTE BASOPHILS # (AUTO) 0.1 10^3/uL (0.0-0.2); ABSOLUTE EOSINOPHILS # (AUTO) 0.3 10^3/uL (0.0-0.6); ABSOLUTE LYMPHOCYTES (AUTO) 2.1 10^3/uL (0.5-4.7); ABSOLUTE MONOCYTES (AUTO) 0.9 10^3/uL (0.1-1.4); ABSOLUTE NEUT (AUTO) 5.8 10^3/uL (1.7-8.2); BASOPHILS % (AUTO) 0.9 % (0-2); EOSINOPHILS % (AUTO) 3.4 % (0-6); HEMATOCRIT 47.9 % (37.9-51.0); LYMPHOCYTES % (AUTO) 22.5 % (13-45); MEAN CORPUSCULAR HEMOGLOBIN 30.5 pg (27.0-33.4); MEAN CORPUSCULAR HGB CONC 33.5 g/dL (32.0-36.0); MEAN CORPUSCULAR VOLUME 91 fl (80-97); MONOCYTES % (AUTO) 10.1 % (3-13); PLATELET COUNT 217 10^3/uL (150-450); RED BLOOD COUNT 5.27 10^6/uL (4.35-5.55); SEGMENTED NEUTROPHILS % (AUTO) 63.1 % (42-78); TOTAL CELLS COUNTED % (AUTO) 100 %; WHITE BLOOD COUNT 9.1 10^3/uL (4.0-10.5)
[2019-09-16 12:32] LABS: VENOUS BLOOD BASE EXCESS 0.5 mmol/L; VENOUS BLOOD HCO3 26.6 mmol/L (20-32); VENOUS BLOOD PH 7.36 (7.30-7.42)
--- NOTE | 2019-09-16 12:57 | RADIOLOGY REPORT (SQ) ---
EXAM DESCRIPTION: CT HEAD WITHOUT IMAGES COMPLETED DATE/TIME: 09/16/2019 12:45 pm REASON FOR STUDY: seizure COMPARISON: 07/09/2019 TECHNIQUE: Axial images acquired through the brain without intravenous contrast. Images reviewed wi th bone, brain and subdural windows. Additional sagittal and coronal reconstructions were generated. Images stored on PACS. All CT scanners at this facility use dose modulation, iterative reconstruction, and/or weight based d osing when appropriate to reduce radiation dose to as low as reasonably achievable (ALARA). [facility]: Dose Right [facility]: CareDose [facility]: Dose Right [facility]: Teradose 4D [facility]: Michael Bieker RADIATION DOSE: CT Rad equipment meets quality standard of care and radiation dose reduction techniq ues were employed. CTDIvol: 53.2 mGy. DLP: 1070 mGy-cm. mGy. LIMITATIONS: None. FINDINGS: VENTRICLES: Normal size and contour. CEREBRUM: No masses. No hemorrhage. No midline shift. No evidence for acute infarction. 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 No hemorrhage. No alteration of density. No evidence for acute infarction. EXTRAAXIAL SPACES: No fluid collections. No masses. ORBITS AND GLOBE: No intra- or extraconal masses. Normal contour of globe without masses. CALVARIUM: Post craniotomy defect on the right is unchanged. PARANASAL SINUSES: No fluid or mucosal thickening. SOFT TISSUES: No mass or hematoma. OTHER: No other significant finding. IMPRESSION: Stable CT of the brain as described. No acute findings. EVIDENCE OF ACUTE STROKE: NO. COMMENT: Quality ID # [id number]: Final reports with documentation of one or more dose reduction techniques (e.g., Automated exposure control, adjustment of the mA and/or kV according to patient size, use of iterative reconstruction technique) TECHNICAL DOCUMENTATION: JOB ID: [id number] 2010 [employer]- All Rights Reserved Reading location - IP/workstation name: [email or web address]
--- NOTE | 2019-09-16 12:58 | RADIOLOGY REPORT (SQ) ---
EXAM DESCRIPTION: CHEST SINGLE VIEW IMAGES COMPLETED DATE/TIME: 09/16/2019 12:47 pm REASON FOR STUDY: seizure COMPARISON: 03/08/2019 EXAM PARAMETERS: NUMBER OF VIEWS: One view. TECHNIQUE: Single frontal radiographic view of the chest acquired. RADIATION DOSE: NA LIMITATIONS: None. FINDINGS: LUNGS AND PLEURA: No opacities, masses or pneumothorax. No pleural effusion. MEDIASTINUM AND HILAR STRUCTURES: No masses. Contour normal. HEART AND VASCULAR STRUCTURES: Heart normal in size. Normal vasculature. BONES: No acute findings. HARDWARE: None in the chest. OTHER: No other significant finding. IMPRESSION: NO ACUTE RADIOGRAPHIC FINDING IN THE CHEST. TECHNICAL DOCUMENTATION: JOB ID: [id number] 2010 [employer]- All Rights Reserved Reading location - IP/workstation name: [email or web address]
[2019-09-16 12:59] LABS: ALKALINE PHOSPHATASE 79 U/L (38-126); ANION GAP 5 (5-19); ASPARTATE AMINO TRANSFERASE 17 U/L (17-59); BILIRUBIN,TOTAL 0.6 mg/dL (0.2-1.3); BLOOD UREA NITROGEN 12 mg/dL (7-20); CALCIUM 9.5 mg/dL (8.4-10.2); CARBON DIOXIDE 27 mmol/L (22-30); CHLORIDE 107 mmol/L (98-107); GLUCOSE 92 mg/dL (75-110); POTASSIUM 4.4 mmol/L (3.6-5.0); TOTAL PROTEIN 6.7 g/dL (6.3-8.2)
[2019-09-16 13:01] LABS: ALCOHOL < 10 mg/dL (NONE DETECTED)
--- NOTE | 2019-09-16 17:10 | EKG REPORT ---
SEVERITY:- NORMAL ECG - SINUS RHYTHM : Confirmed by: Gus Adams MD 16-Sep-2019 17:09:40
[2019-09-16 17:29] LABS: APPEARANCE,URINE CLEAR; BILIRUBIN,URINE NEGATIVE (NEGATIVE); COLOR,URINE YELLOW; GLUCOSE, URINE NEGATIVE (NEGATIVE); KETONES,URINE NEGATIVE (NEGATIVE); PROTEIN,URINE NEGATIVE (NEGATIVE); URINE SPECIFIC GRAVITY 1.013; UROBILINOGEN,URINE NEGATIVE mg/dL (<2.0)
[2019-09-16 17:41] LABS: URINE AMPHETAMINES SCREEN NEGATIVE; URINE BARBITURATES SCREEN NEGATIVE; URINE COCAINE SCREEN NEGATIVE; URINE MARIJUANA (THC) SCREEN NEGATIVE; URINE METHADONE SCREEN NEGATIVE; URINE PHENCYCLIDINE SCREEN NEGATIVE
[2019-09-16 17:42] LABS: URINE BENZODIAZEPINES SCREEN UNCONFIRMED POSITIVE
[2019-09-16] MEDS ORDERED: NORMAL SALINE 1000 ML 1,000 ML IV ONE (17:58)
[2019-09-16 18:23] VITALS: BP 108/66
== END 2019-09-16 18:56 | disposition home or self-care (01) ==
LOC: ER 11:54
DX: R56.9 Unspecified convulsions (principal); R53.1 Weakness; F17.200 Nicotine dependence, unspecified, uncomplicated; E78.00 Pure hypercholesterolemia, unspecified; I10 Essential (primary) hypertension
CPT/HCPCS: 93005; 99285; 96365; 36415; 80307 ×2; 83605; 85025; 80053; 81001; 82803; 71045; 70450; 93010; J1953